=== PATIENT | male | born 1970 | race Caucasian/White ===

== ENCOUNTER 2018-09-30 20:14 | Outpatient (REF) | payer BC, SELFPAY | END 2018-09-30 20:34 | LOC: NCHCN 20:14 | PROVIDERS: PCP Specialist/Technologist Athletic Trainer; Visit Provider Specialist/Technologist Athletic Trainer | DX: Z00.00 Encounter for general adult medical examination without abnormal findings (principal); Z12.5 Encounter for screening for malignant neoplasm of prostate | CPT/HCPCS: 84153 ==

== ENCOUNTER 2019-08-11 09:50 | Outpatient (REF) | payer BC, SELFPAY ==
[2019-08-11 13:08] LABS: Anion Gap 7.1 mmol/L (3-11); BUN 17 mg/dL (7-18); CO2 28.9 mmol/L (21.0-32.0); CREATININE 1.12 mg/dL (0.70-1.30); Calcium 9.2 mg/dL (8.5-10.1); Calculated LDL 133 mg/dL; Chloride 106 mmol/L (98-107); Cholesterol 200 mg/dL (50-200); Glucose 80 mg/dL (70-100); HDL Cholesterol 44 mg/dL (40-60); Potassium 4.6 mmol/L (3.5-5.1); Sodium 142 mmol/L (136-145); Triglyceride 119 mg/dL (30-150)
[2019-08-12 10:36] LABS: PSA, Screening 1.1 ng/ml (0-2.5)
== END 2019-08-11 10:10 ==
LOC: NCHCN 09:50
PROVIDERS: PCP Specialist/Technologist Athletic Trainer; Visit Provider Specialist/Technologist Athletic Trainer
DX: Z00.00 Encounter for general adult medical examination without abnormal findings (principal); Z13.220 Encounter for screening for lipoid disorders; Z13.228 Encounter for screening for other metabolic disorders; Z12.5 Encounter for screening for malignant neoplasm of prostate
CPT/HCPCS: 80048; 80061; 84153

== ENCOUNTER 2020-08-14 16:49 | Outpatient (REF) | payer BC, SELFPAY ==
[2020-08-16 15:15] LABS: PSA, Screening 0.9 ng/mL (0-3.5)
== END 2020-08-14 17:09 ==
LOC: NCHCN 16:49
PROVIDERS: PCP Specialist/Technologist Athletic Trainer; Visit Provider Nurse Practitioner Family
DX: Z12.11 Encounter for screening for malignant neoplasm of colon (principal); Z80.42 Family history of malignant neoplasm of prostate; Z00.00 Encounter for general adult medical examination without abnormal findings; K22.2 Esophageal obstruction; G47.33 Obstructive sleep apnea (adult) (pediatric)
CPT/HCPCS: 84153

== ENCOUNTER 2021-08-20 15:15 | Outpatient (REF) | payer BC, SELFPAY ==
[2021-08-20 18:00] LABS: Anion Gap 9.2 mmol/L (3-11); BUN 15 mg/dL (7-18); CO2 26.8 mmol/L (21.0-32.0); CREATININE 0.7 mg/dL (0.70-1.30); Calcium 9.1 mg/dL (8.5-10.1); Calculated LDL 121 mg/dL (<100); Chloride 105 mmol/L (98-107); Cholesterol 204 mg/dL (<200); Glucose 84 mg/dL (74-106); HDL Cholesterol 69 mg/dL (40-60); Magnesium 1.8 mg/dL (1.8-2.4); Potassium 4.5 mmol/L (3.5-5.1); Sodium 141 mmol/L (136-145); Triglyceride 72 mg/dL (<150); Vitamin B12 346 pg/mL (193-986)
[2021-08-21 17:44] LABS: PSA, Screening 1.4 ng/mL (0.0-3.5)
== END 2021-08-20 15:16 | disposition home or self-care (01) ==
LOC: NCHCN 15:15
PROVIDERS: PCP Specialist/Technologist Athletic Trainer; Visit Provider Nurse Practitioner Family
DX: Z12.5 Encounter for screening for malignant neoplasm of prostate (principal); K22.2 Esophageal obstruction; G47.33 Obstructive sleep apnea (adult) (pediatric); Z00.00 Encounter for general adult medical examination without abnormal findings
CPT/HCPCS: 80048; 80061; 84153; 82607; 83735

== ENCOUNTER 2022-10-22 08:50 | Outpatient (REF) | payer BC, SELFPAY ==
[2022-10-22 17:09] LABS: Anion Gap 7.3 mmol/L (3-11); BUN 13 mg/dL (7-18); CO2 30.7 mmol/L (21.0-32.0); CREATININE 1.2 mg/dL (0.70-1.30); Calcium 8.9 mg/dL (8.5-10.1); Chloride 106 mmol/L (98-107); Estimated GFR 72.76 (mL/min/1.73m2); Glucose 101 mg/dL (74-106); Magnesium 2.1 mg/dL (1.8-2.4); Potassium 4.3 mmol/L (3.5-5.1); Sodium 144 mmol/L (136-145); Vitamin B12 343 pg/mL (193-986)
[2022-10-23 10:11] LABS: PSA, Screening 1.2 ng/mL (<=3.5)
== END 2022-10-22 08:51 | disposition home or self-care (01) ==
LOC: NCHCN 08:50
PROVIDERS: PCP Specialist/Technologist Athletic Trainer; Visit Provider Nurse Practitioner Family
DX: K22.2 Esophageal obstruction (principal); G47.33 Obstructive sleep apnea (adult) (pediatric); Z00.00 Encounter for general adult medical examination without abnormal findings; Z80.42 Family history of malignant neoplasm of prostate
CPT/HCPCS: 80048; 84153; 82607; 83735

== ENCOUNTER 2022-11-03 23:38 | Emergency (ER) | payer BC, SELFPAY ==
--- NOTE | 2022-11-03 23:30 | DI.CT_ITS ---
Exam(s) CT LUMBAR SPINE WO EXAM: CT LUMBAR SPINE WO CLINICAL HISTORY: severe right lower back pain. TECHNIQUE: Imaging Protocol: Axial computed tomography images with coronal and sagittal reformatted images were created and reviewed. COMPARISON: No exams were available for comparison FINDINGS: Bones: No fractures or dislocations are seen. The alignment of the spine is normal including the thor acolumbar junction. Soft tissues: There is a nonobstructing 2 mm right lower pole renal calculus. The soft tissues of th e visualized abdomen and chest are unremarkable. No large disk herniations are identified. No signifi cant central spinal canal or neural foraminal stenosis. IMPRESSION: 1. No acute abnormality in the lumbar spine. 2. Nonobstructing right nephrolithiasis. RADIATION DOSE DELIVERED: 446.05mGy.cm Total DLP 446.05mGy.cm Total DLP DATA REPOSITORY: All CT scans at this facility are submitted to the National Radiology Data Registry (NRDR) Dose Index Registry (DIR) with the [employer] (ACR). RADIATION OPTIMIZATION: All CT scans at this facility use at least one of these dose optimization te chniques: automated exposure control; mA and/or kV adjustment per patient size (includes targeted exa ms where dose is matched to clinical indication); or iterative reconstruction.
[2022-11-03 23:43] VITALS: BP 111/66; PULSE 86; RESP 18; TEMP 36.7; O2SAT 98
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
[2022-11-04] MEDS: Ondansetron 4 MG/2 ML VIAL (00:13)
[2022-11-04] MEDS: Ketorolac 15 MG/ML VIAL IVP (00:13)
[2022-11-04] MEDS: methylPREDNISolone SUCC 125 MG VIAL IVP (00:13)
[2022-11-04] MEDS: Normal Saline 500 ML IV (00:20)
[2022-11-04 01:28] VITALS: BP 115/79; PULSE 74; RESP 18; TEMP 36.7; O2SAT 92
[2022-11-04] MEDS: Lidocaine 5% Patch 1 PATCH (01:42)
[2022-11-04] MEDS: Acetaminophen 500 MG TAB 1000 MG PO (01:44)
== END 2022-11-04 01:39 | disposition home or self-care (01) ==
PROVIDERS: Emergency Provider Student in an Organized Health Care Education/Training Program; PCP Specialist/Technologist Athletic Trainer
DX: M62.830 Muscle spasm of back (principal); R25.2 Cramp and spasm
CPT/HCPCS: 96361; 96374; 96375; 99284; 72131; J1885; J2405; J2930

== ENCOUNTER 2023-02-17 03:08 | Emergency (ER) | payer BC, SELFPAY ==
[2023-02-17 03:12] VITALS: BP 147/92; PULSE 46; RESP 17; TEMP 36.7; O2SAT 100
--- NOTE | 2023-02-17 03:20 | ED.GENADUL_ITS ---
Discharge Plan Disposition Patient Disposition: Home Discharge Details Clinical Impression: Kidney stone on right side Primary Care Provider: Mary Ann Harman ED Provider: Rin Amador Home Meds and New Rx's Prescriptions: New ondansetron 8 mg tablet,disintegrating 8 mg PO Q8H PRN (Reason: nausea and vomiting) Qty: 21 0RF hydromorphone 2 mg tablet 2 mg PO Q4H PRN (Reason: pain) Qty: 20 0RF Continued lidocaine [Lidoderm] 5 % adhesive patch,medicated 1 patch Topical Q24H Qty: 15 0RF cyclobenzaprine 10 mg tablet 10 mg PO TID Qty: 14 0RF Discharge Instructions Instructions: Kidney Stones (ED) Additional Instructions: Zofran 8 mg every 8 hours as needed for nausea and vomiting. Dilaudid as prescribed and as needed for pain. Ibuprofen 600 mg every 6 hours for pain. Drink plenty of fluids. Dr. Schultz's office will call you tomorrow for follow-up appointment. He is a local urologist. Return to ED for fever of 100.4 or above, uncontrolled pain, any other concerns. Medical Decision Making Patient had a lumbosacral spine CT in October of this year. This did show an incidental stone in his right kidney. I told him I suspect suspect this is what is passing but due to his age over 50 will we will image him. I do not feel a pulsating mass on examination. He did ask for some pain medicine and because he vomited at home were giving him Zofran as well. We will check a UA as well to assure that there is no evidence of infection. 0520: The patient is comfortable. He has been updated on his test results. We will discharge him home and he can follow-up with Dr. Schultz as needed. He will return for fever of 100.4 or above with uncontrolled pain. Imaging Data Radiologic Study: Radiologist's impression: CT abdomen and pelvis: 2 mm obstructing stone at the right UVJ. Mild hydronephrosis is present. Lab Data Lab results reviewed: Yes I reviewed the patient's lab results. Lab results narrative: UA positive for blood. Specific gravity greater than or equal to 1.030. HPI General Date/Time Provider Initiated Documentation: 02/17/23 03:20 . HPI Narrative: This 52-year-old male patient presents with a chief complaint of right flank pain that woke him up at 0230 this morning. He states that the pain is sharp and colicky and is now starting to radiate around into his right lower quadrant. He took 4 Advil's at home without relief. Nothing really makes this better or worse. He did vomit at home. He has no fever or URI symptoms. There is no chest pain or shortness of breath. He does have some mild dysuria. He is moving his bowels normally. He has no pedal edema or calf pain. Related Data Home Medications Medication Instructions Recorded Confirmed cyclobenzaprine 10 mg tablet 10 mg PO TID #14 tabs 11/04/22 lidocaine 5 % topical patch 1 patch topical Q24H #15 ea 11/04/22 (Lidoderm) hydromorphone 2 mg tablet 2 mg PO Q4H PRN pain #20 tabs 02/17/23 ondansetron 8 mg disintegrating 8 mg PO Q8H PRN nausea and 02/17/23 tablet vomiting #21 tabs Previous Rx's Medication Instructions Recorded cyclobenzaprine 10 mg tablet 10 mg PO TID #14 tabs 11/04/22 lidocaine 5 % topical patch 1 patch topical Q24H #15 ea 11/04/22 (Lidoderm) hydromorphone 2 mg tablet 2 mg PO Q4H PRN pain #20 tabs 02/17/23 ondansetron 8 mg disintegrating 8 mg PO Q8H PRN nausea and 02/17/23 tablet vomiting #21 tabs General Stated Complaint: FlankPain GEN: 3 Review of Systems Constitutional Constitutional: Denies chills, Denies fever(s), Denies headache(s) and Denies weakness Eyes Eyes: Denies diplopia and Reports other (no redness) ENT Ears, Nose, Mouth, and Throat: Denies otalgia, Denies headache(s), Denies nasal congestion, Denies nasal discharge, Denies neck pain and Denies sore throat Cardiovascular Cardiovascular: Denies chest pain, Denies palpitations and Denies dyspnea Respiratory Respiratory: Denies cough and Denies dyspnea Gastrointestinal Gastrointestinal: Denies abdominal pain, Denies diarrhea, Denies nausea and Denies vomiting Genitourinary Genitourinary: Denies difficulty urinating and Reports dysuria (mild burning) Comments: No CVA tenderness to percussion Musculoskeletal Musculoskeletal: Denies myalgias, Denies muscle weakness, Denies neck pain, Denies numbness and Reports other (no pedal edema or calf TTP) Integumentary/Breasts Skin/Breast: Denies change in pigmentation and Denies rash Neurologic Neurologic: Denies headache(s), Denies numbness and Denies weakness Endocrine Endocrine: Denies palpitations PFSH All Active Problems (Updated 02/17/23 @ 05:22 by Rin Amador MD) Kidney stone on right side (Acute) Social History Smoking/Tobacco Use Status: Never Smoking risk assessment performed?: Yes Alcohol Intake: current Alcohol Intake frequency: holidays/special occasions only Drug use: Never Substance use type: does not use Do you feel safe at home: Yes Do you feel safe in your relationship?: Yes Exam Const General: no acute distress, well developed, well groomed and not in acute distress Nutritional Appearance: well nourished Orientation: alert and oriented x3 HENMT Head: normocephalic and atraumatic Ears: external ears normal Mouth: oropharynx normal and moist mucous membranes Throat: posterior oropharynx normal Eyes Conjunctivae: conjunctivae normal Neck Neck: full ROM and supple Chest Chest: normal inspection of the chest Resp Effort & Inspection: normal respiratory effort Auscultation: clear to auscultation bilaterally Cardio Rate: regular rate Rhythm: regular rhythm Heart Sounds: no murmurs and no rubs GI Inspection: normal to inspection Palpation: soft, nontender and other (non distended, no GR, no pulsating masses) Auscultation: normal bowel sounds Skin General skin exam: no rashes or lesions noted and other (pink, warm, dry) Neuro General: patient alert, patient awake and patient oriented x3 Speech: speech normal Motor: other (NEIL) Sensory Exam: no sensory deficits noted Extrem General: normal to inspection, full ROM and pedal edema present Psych Mental Status: mental status grossly normal Speech and Movement: speech and movement normal Affect: normal affect Course Vital Signs Vital signs: Vital Signs Temperature 36.7 C 02/17/23 03:12 Pulse 46 L 02/17/23 03:12 Respiratory Rate 17 02/17/23 03:12 Blood Pressure 147/92 H 02/17/23 03:12 Pulse Oximetry 100 02/17/23 03:12 Temperature 36.7 C 02/17/23 03:12 Temperature Source Temporal Artery Scan 02/17/23 03:12 Pulse 46 L 02/17/23 03:12 Respiratory Rate 17 02/17/23 03:12 Respiratory Effort Normal 02/17/23 03:14 Blood Pressure 147/92 H 02/17/23 03:12 Blood Pressure Position Sitting 02/17/23 03:12 Pulse Oximetry 100 02/17/23 03:12 Oxygen Delivery Method Room Air 02/17/23 03:12 Oxygen Flow Rate 0 02/17/23 03:12 Pain Level 7 02/17/23 03:12
--- NOTE | 2023-02-17 03:30 | DI.CT_ITS ---
Exam(s) CT ABDOMEN PELVIS WO EXAM: CT ABDOMEN PELVIS WO CLINICAL HISTORY: R flank pain. TECHNIQUE: Imaging Protocol: Axial computed tomography images with coronal and sagittal reformatted images were created and reviewed. Oral: / no COMPARISON: CT CT LUMBAR SPINE WO from 11/04/2022 FINDINGS: ABDOMEN: Lung Bases: Normal where visualized. Liver: Normal density. No measurable mass. Gallbladder and biliary tract: No radiodense calculus or dilation. Pancreas: Normal density, no abnormal calcifications or inflammatory process. Spleen: Normal. Kidneys: Normal size, contour and axis. 2 millimeter stone at right ureterovesical junction causing m ild right hydronephrosis. Tiny nonobstructing stone lower pole right kidney. No left renal calculi no masses seen. Adrenal glands: No masses seen. Lymph nodes: Within normal limits. Abdominal Aorta: Abdominal portion non-dilated. PELVIS: Bladder: Nearly empty. Not well evaluated. Bowel: Sigmoid diverticulosis. No obstruction or bowel wall thickening. Peritoneal cavity: No ascites, collection or mesenteric inflammatory response. Reproductive organs: Prostate and seminal vesicles mildly enlarged. Soft tissues: Bilateral fatty co ntaining inguinal hernias. Bones: Within normal limits. IMPRESSION: 2 millimeter stone at the right ureteral vesicle junction causing mild hydronephrosis. RADIATION DOSE DELIVERED: 658.9mGy.cm Total DLP DATA REPOSITORY: All CT scans at this facility are submitted to the National Radiology Data Registry (NRDR) Dose Index Registry (DIR) with the [employer] (ACR). RADIATION OPTIMIZATION: All CT scans at this facility use at least one of these dose optimization te chniques: automated exposure control; mA and/or kV adjustment per patient size (includes targeted exa ms where dose is matched to clinical indication); or iterative reconstruction.
[2023-02-17] MEDS: Normal Saline 1,000 ML 1000 ML IV (03:37)
[2023-02-17] MEDS: Ondansetron 4 MG/2 ML VIAL 8 MG IVP (03:38)
[2023-02-17] MEDS: HYDROmorphone 2 MG/ML SYR 1 MG IVP ×2 (03:38→04:39)
[2023-02-17 04:10] LABS: Bilirubin Negative (Negative); Blood Large (Negative); Clarity Sl Cloudy (Clear); Glucose Negative (Negative); Ketones Negative (Negative); Leukocyte Esterase Negative (Negative); Nitrite Negative (Negative); Specific Gravity >= 1.030 (1.005-1.025); Urobilinogen 0.2 mg/dL (Up to 0.2)
[2023-02-17 04:18] LABS: Bacteria Few HPF (Negative); C & S Indicated? No; Crystals Negative HPF (Negative); Epithelial Cells Rare HPF (Negative); Mucus Moderate (Negative); WBC 0-2 HPF (0-5)
--- NOTE | 2023-02-17 05:17 | DI.VRAD_ITS ---
PROCEDURE INFORMATION: Exam: CT Abdomen And Pelvis Without Contrast Exam date and time: 02/17/2023 3:49 AM Age: 52 years old Clinical indication: Abdominal pain; Flank; Right TECHNIQUE: Imaging protocol: Computed tomography of the abdomen and pelvis without contrast. Radiation optimization: All CT scans at this facility use at least one of these dose optimization techniques: automated exposure control; mA and/or kV adjustment per patient size (includes targeted exams where dose is matched to clinical indication); or iterative reconstruction. COMPARISON: CT LUMBAR SPINE WO 11/04/2022 12:02 AM FINDINGS: Lungs: Lung bases clear. Diaphragm: Small hiatal hernia. Liver: Grossly unremarkable unenhanced liver. Gallbladder and bile ducts: Gallbladder partially collapsed. No calcified gallstones seen. No biliary dilatation. Pancreas: Grossly unremarkable unenhanced pancreas. Spleen: Grossly unremarkable unenhanced spleen. Adrenal glands: Normal appearing adrenal glands. Kidneys and ureters: 2 mm stone at the right ureterovesical junction with upstream ureterectasis and mild hydronephrosis in keeping with obstructive uropathy. No radiopaque left-sided urinary tract stones or hydronephrosis. Stomach and bowel: No oral contrast. Stomach moderately distended with fluid. No small bowel dilatation to suggest obstruction. Normal-appearing fecal material in the cecum, ascending colon, and transverse colon. Downstream colon completely evacuated and collapsed. Scattered colonic diverticula but no evidence of diverticulitis or convincing evidence of colitis. Appendix: Normal appendix. Intraperitoneal space: No gross ascites or free air. Vasculature: Normal caliber abdominal aorta. Lymph nodes: No pathologically enlarged mesenteric, retroperitoneal, or pelvic sidewall lymph nodes. Urinary bladder: Urinary bladder partially decompressed. Reproductive: Prostate gland and seminal vesicles grossly normal in size. Bones/joints: No acute fracture seen among the bones of the abdomen or pelvis. Soft tissues: Moderate-sized fat containing bilateral inguinal hernias. IMPRESSION: 2 mm obstructing stone at the right ureterovesical junction. Dictated and Authenticated by: Jose Alberto Carter MD. Ordering:DAMARIS Gar MD
--- NOTE | 2023-02-17 05:23 | NUR.NOTE ---
Pt placed on referral for urology for kidney stones to be seen within 1 week
[2023-02-17] MEDS: HYDROmorphone 2 MG TAB PO (05:41)
== END 2023-02-17 05:42 | disposition home or self-care (01) ==
LOC: ER 05:22
PROVIDERS: Emergency Provider Emergency Medicine; PCP Nurse Practitioner Family
DX: N20.0 Calculus of kidney (principal)
CPT/HCPCS: 96361; 96374; 96375; 96376; 99284; 74176; 81003; 81015; J1170; J2405

== ENCOUNTER 2023-11-17 09:49 | Outpatient (REF) | payer BC, SELFPAY ==
[2023-11-17 15:31] LABS: Magnesium 2.4 mg/dL (1.8-2.4); Vitamin B12 325 pg/mL (193-986)
[2023-11-17 15:48] LABS: Hemoglobin A1C 5.5 % (<5.7)
[2023-11-17 23:21] LABS: PSA, Screening 0.9 ng/mL (<=3.5)
== END 2023-11-17 09:50 | disposition home or self-care (01) ==
LOC: NCHCN 09:49
PROVIDERS: PCP Nurse Practitioner Family; Visit Provider Nurse Practitioner Family
DX: K22.2 Esophageal obstruction (principal); Z13.1 Encounter for screening for diabetes mellitus; Z12.5 Encounter for screening for malignant neoplasm of prostate
CPT/HCPCS: 84153; 82607; 83036; 83735

== ENCOUNTER 2024-11-04 18:55 | Outpatient (REF) | payer BC, SELFPAY ==
[2024-11-04 16:06] LABS: Anion Gap 6.9 mmol/L (3-11); BUN 24 mg/dL (7-18); CO2 30.1 mmol/L (21.0-32.0); CREATININE 1.4 mg/dL (0.70-1.30); Calcium 9.3 mg/dL (8.5-10.1); Calculated LDL 143 mg/dL (<100); Chloride 106 mmol/L (98-107); Cholesterol 224 mg/dL (<200); Estimated GFR 59.73 (mL/min/1.73m2); Glucose 92 mg/dL (74-106); HDL Cholesterol 70 mg/dL (40-60); Magnesium 2.2 mg/dL (1.8-2.4); Sodium 143 mmol/L (136-145); Triglyceride 55 mg/dL (<150); Vitamin B12 310 pg/mL (193-986)
[2024-11-04 22:35] LABS: PSA, Screening 1.1 ng/mL (<=3.5)
== END 2024-11-04 18:56 | disposition home or self-care (01) ==
LOC: NCHCN 18:55
PROVIDERS: PCP Nurse Practitioner Family; Visit Provider Nurse Practitioner Family
DX: Z00.00 Encounter for general adult medical examination without abnormal findings (principal); Z12.5 Encounter for screening for malignant neoplasm of prostate; K22.2 Esophageal obstruction
CPT/HCPCS: 80048; 80061; 84153; 82607; 83735

== ENCOUNTER 2024-11-15 13:33 | Outpatient (REF) | payer BC, SELFPAY ==
--- OUTSIDE RECORDS SUMMARY | 2024-11-15 13:34 | XMS_ITS | Encounter Summary ---
Author Organization [facility] Address [address] [place] [address] Care Team Providers Care Geotechnical Intern Name Role Phone Az Rose MD Primary Care Provider [phone] Encounter Details Date Type Department Care Team (Late st Contact Info) Description 11/04/2024 Lab Requisition [facility] Pathology & Laboratory Medicine - [address] [id number] Outr Resulting Lab, Provider Social History Tobacco Use Types Packs/Day Years Used Date Smoking Tobacco: Never Assessed Sex and Gender Information Value Date Recorded Sex Assigned at Not on file Legal Sex Male 18:30 EST Gender Identity Not on file Sexual Orientation Not on file documented as of this encounter Plan of Treatment Not on file documented as of this encounter Procedures Procedure Name Priority Date/Time Associated Diagnosis Comments PSA TOTAL, DIAGNOSTIC Routine 11/04/2024 8:06 EST documented in this encounter Results * PSA, DIAGNOSTIC (11/04/2024 8:06 EST) PSA 1.1 <=3.5 ng/mL 11/04/2024 22:30 EST [facility] Blood VENOUS BLOOD / Unknown 11/04/2024 8:06 EST 11/04/2024 21:28 EST Narrative [facility] - 11/04/2024 22:30 EST NOTE: Serum PSA concentration should not be interpreted as absolute evidence for the presence or absence of malignant disease. Assayed on Siemens ADVIA Centaur XPT using chemiluminescent technology.??Values obtained by using different assay methods cannot be used interchangeably. us Provider Outr Resulting Lab CHEMISTRY & BLOOD GA S ORDERABLES Final Result [facility] [address] [place] [address] documented in this encounter Visit Diagnoses Not on filedocumented in this encounter Care Teams Geotechnical Intern Relationship Specialty Start Date End Date Az Rose MD [address] [place] [address] PCP - General 08/12/15 documented as of this encounter
--- OUTSIDE RECORDS SUMMARY | 2024-11-15 13:34 | XMS_ITS | Clinical Summary ---
Author Organization [facility] Address [address] [place] [address] Care Team Providers Care Allergy Physician Name Role Phone Az Rose MD Primary Care Provider [phone] Encounters Date Type Department Care Team Description 11/04/2024 Lab Requisition [facility] Pathology & Laboratory Medicine - [address] [address] Outr Resulting Lab, Provider from Last 3 Months Social History Tobacco Use Types Packs/Day Years Used Date Smoking Tobacco: Never Assessed Sex and Gender Information Value Date Recorded Sex Assigned at Not on file Legal Sex Male 18:30 EST Gender Identity Not on file Sexual Orientation Not on file Plan of Treatment Health Maintenance Due Date Last Done Comments Hepatitis C Screen 1970 Hepatitis B Vaccine (1 of 3 - 19+ 3-dose series) 05/31 COVID-19 Vaccine ( season) 2024 Procedures Procedure Name Priority Date/Time Associated Diagnosis Comments PSA TOTAL, DIAGNOSTIC Routine 11/04/2024 8:06 EST from Last 3 Months Results * PSA, DIAGNOSTIC (11/04/2024 8:06 EST) PSA 1.1 <=3.5 ng/mL 11/04/2024 22:30 EST [facility] Blood VENOUS BLOOD / Unknown 11/04/2024 8:06 EST 11/04/2024 21:28 EST Narrative [facility] - 11/04/2024 22:30 EST NOTE: Serum PSA concentration should not be interpreted as absolute evidence for the presence or absence of malignant disease. Assayed on Siemens ADVIA Centaur XPT using chemiluminescent technology.??Values obtained by using different assay methods cannot be used interchangeably. us Provider Outr Resulting Lab CHEMISTRY & BLOOD GA S ORDERABLES Final Result [facility] [address] [place] [address] from Last 3 Months Care Teams Allergy Physician Relationship Specialty Start Date End Date zA Rose MD [address] [place] [address] PCP - General 08/12/15
--- OUTSIDE RECORDS SUMMARY | 2024-11-15 13:34 | XMS_ITS | Referral Summary ---
Author Organization [facility] Address [address] [place] [address] Care Team Providers Care Molder Feeder Name Role Phone Az Rose MD Primary Care Provider [phone] Encounters Date Type Department Care Team Description 11/04/2024 Lab Requisition [facility] Pathology & Laboratory Medicine - [address] [address] Outr Resulting Lab, Provider from Last 3 Months Social History Tobacco Use Types Packs/Day Years Used Date Smoking Tobacco: Never Assessed Sex and Gender Information Value Date Recorded Sex Assigned at Not on file Legal Sex Male 18:30 EST Gender Identity Not on file Sexual Orientation Not on file Plan of Treatment Not on file Procedures Procedure Name Priority Date/Time Associated Diagnosis Comments PSA TOTAL, DIAGNOSTIC Routine 11/04/2024 8:06 EST from Last 3 Months Results * PSA, DIAGNOSTIC (11/04/2024 8:06 EST) PSA 1.1 <=3.5 ng/mL 11/04/2024 22:30 EST [facility] Blood VENOUS BLOOD / Unknown 11/04/2024 8:06 EST 11/04/2024 21:28 EST Narrative [facility] - 11/04/2024 22:30 EST NOTE: Serum PSA concentration should not be interpreted as absolute evidence for the presence or absence of malignant disease. Assayed on Siemens ADVIA Unightaur XPT using chemiluminescent technology.??Values obtained by using different assay methods cannot be used interchangeably. us Provider Outr Resulting Lab CHEMISTRY & BLOOD GA S ORDERABLES Final Result [facility] [address] [place] [address] from Last 3 Months Care Teams Molder Feeder Relationship Specialty Start Date End Date Az Rose MD [address] [place] [address] PCP - General 08/12/15
--- OUTSIDE RECORDS SUMMARY | 2024-11-15 13:34 | XMS_ITS | Encounter Summary ---
Author Organization [facility] Address [address] [place] [address] Care Team Providers Care Tool Crib Attendant Name Role Phone Az Rose MD Primary Care Provider [phone] Encounter Details Date Type Department Care Team (Late st Contact Info) Description 11/17/2023 Lab Requisition [facility] Pathology & Laboratory Medicine - [address] [address] Outr Resulting Lab, Provider Social History Tobacco [...] Associated Diagnosis Comments PSA TOTAL, DIAGNOSTIC Routine 11/17/2023 9:10 EST documented in this encounter Results * PSA TOTAL, DIAGNOSTIC (11/17/2023 9:10 EST) PSA 0.9 <=3.5 ng/mL 11/17/2023 23:15 EST [facility] Blood VENOUS BLOOD / Unknown 11/17/2023 9:10 EST 11/17/2023 21:19 EST Narrative [facility] - 11/17/2023 23:15 EST NOTE: Serum PSA concentration should not be interpreted as absolute evidence for the presence or absence of malignant disease. Assayed on Siemens ADVIA Centaur XPT using chemiluminescent technology.??Values obtained by using different assay methods cannot be used interchangeably. us Provider Outr Resulting Lab CHEMISTRY & BLOOD GA S ORDERABLES Final Result [facility] [address] [place] [address] documented in this encounter Visit Diagnoses Not on filedocumented in this encounter Care Teams Tool Crib Attendant Relationship Specialty Start Date End Date Az Rose MD [address] [place] [address] PCP - General 08/12/15 documented as of this encounter
--- OUTSIDE RECORDS SUMMARY | 2024-11-15 13:34 | XMS_ITS | Encounter Summary ---
Author Organization [facility] Address [address] [place] [address] Care Team Providers Care Vest Front Presser Name Role Phone Az Rose MD Primary Care Provider [phone] Encounter Details Date Type Department Care Team (Late st Contact Info) Description 10/22/2022 Lab Requisition [facility] Pathology & Laboratory Medicine - [address] [id number] Outr Resulting Lab, Provider Social History Tobacco [...] Associated Diagnosis Comments PSA TOTAL, DIAGNOSTIC Routine 10/22/2022 8:41 EST documented in this encounter Results * PSA TOTAL, DIAGNOSTIC (10/22/2022 8:41 EST) PSA 1.2 <=3.5 ng/mL 10/23/2022 10:06 EST [facility] Blood VENOUS BLOOD / Unknown 10/22/2022 8:41 EST 10/22/2022 21:26 EST Narrative [facility] - 10/23/2022 10:06 EST NOTE: Serum PSA concentration should not be interpreted as absolute evidence for the presence or absence of malignant disease. Assayed on Siemens ADVIA Centaur XPT using chemiluminescent technology.??Values obtained by using different assay methods cannot be used interchangeably. us Provider Outr Resulting Lab CHEMISTRY & BLOOD GA S ORDERABLES Final Result [facility] [address] [place] [address] documented in this encounter Visit Diagnoses Not on filedocumented in this encounter Care Teams Vest Front Presser Relationship Specialty Start Date End Date Az Rose MD [address] [place] [address] PCP - General 08/12/15 documented as of this encounter
--- OUTSIDE RECORDS SUMMARY | 2024-11-15 13:35 | XMS_ITS | Encounter Summary ---
Author Organization [facility] [place] [address] [place] [address] Care Team Providers Care Creative Art Therapist Name Role Phone Aric Castillo Primary Care Provider Encounter Details Date Type Department Care Team (Late st Contact Info) Description 10/13/2019 Orders [place] [address] Az Hewitt MD [facility] [place] [address] Social History Tobacco Use Types Packs/Day Years Used Date Smoking Tobacco: Never Smokeless Tobacco: Never Alcohol Use Standard Drinks/Week Comments Yes 0 (1 standard drink = 0.6 oz pur e alcohol) rarely Sex and Gender Information Value Date Recorded Sex Assigned at Male 03/08/2022 9:15 PM EDT Gender Identity Not on file Sexual Orientation Straight 03/08/2022 9: 15 PM EDT documented as of this encounter Plan of Treatment Not on file documented as of this encounter Visit Diagnoses Not on filedocumented in this encounter Care Teams Creative Art Therapist Relationship Specialty Start Date End Date Aric Castillo PA PCP - General General Internal Medicine 08/25/1908/25 documented as of this encounter
--- OUTSIDE RECORDS SUMMARY | 2024-11-15 13:35 | XMS_ITS | Encounter Summary ---
Author Organization [facility] Address [address] [place] [address] Care Team Providers Care Transitions Rn Care Coordinator Name Role Phone Az Rose MD Primary Care Provider [phone] Encounter Details Date Type Department Care Team (Late st Contact Info) Description 08/30/2020 Lab Requisition [facility] Pathology & Laboratory Medicine - [address] [phone] Outr Resulting Lab, Provider Social History Tobacco [...] Date/Time Associated Diagnosis Comments PSA TOTAL, DIAGNOSTIC After X-Ray 08/14/2020 10:27 EST documented in this encounter Results * PSA TOTAL, DIAGNOSTIC (08/14/2020 10:27 EST) PSA 0.9 0.0 - 3.5 ng/mL 09/27/2020 10:30 EST [facility] Blood VENOUS BLOOD / Unknown 08/14/2020 10:27 EST 09/26/2020 7:13 EST Narrative [facility] - 09/27/2020 10:30 EST NOTE: Serum PSA concentration should not be interpreted as absolute evidence for the presence or absence of malignant disease. Assayed on Siemens ADVIA Centaur XPT using chemiluminescent technology.??Values obtained by using different assay methods cannot be used interchangeably. us Provider Outr Resulting Lab CHEMISTRY & BLOOD GA S ORDERABLES Final Result [facility] [address] [place] [address] documented in this encounter Visit Diagnoses Not on filedocumented in this encounter Care Teams Transitions Rn Care Coordinator Relationship Specialty Start Date End Date Az Rose MD [address] [place] [address] PCP - General 08/12/15 documented as of this encounter
--- OUTSIDE RECORDS SUMMARY | 2024-11-15 13:35 | XMS_ITS | Encounter Summary ---
Author Organization [facility] [place] [address] Care Team Providers Care User Support Analyst Supervisor Name Role Phone Aric Castillo Primary Care Provider [phone] Encounter Details Date Type Department Care Team (Late st Contact Info) Description 01/14/2020 Refill [place] [id number] Arely Peterson RN Social History Tobacco Use Types Packs/Day Years [...] PM EDT documented as of this encounter Miscellaneous Notes * Telephone Encounter - Arely Peterson RN - 01/14/2020 3:48 PM EDT Received 90 day refill request from [employer] for Omeprazole 40mg one tab daily. Patient seen by Dr. Hewitt in October 2019, per that office note, Restart omeprazole 40 mg po qd. Will forward to Dr. Hewitt for review and approval. documented in this encounter Plan of Treatment Not on file documented as of this encounter Visit Diagnoses Not on filedocumented in this encounter Care Teams User Support Analyst Supervisor Relationship Specialty Start Date End Date Aric Castillo PA PCP - General General Internal Medicine 08/25/1908/25 documented as of this encounter
--- OUTSIDE RECORDS SUMMARY | 2024-11-15 13:35 | XMS_ITS | Encounter Summary ---
[place] [address] Care Team Providers Care Lye Machine Operator Name Role Phone Candace Bridges APRN Primary Care Provider [phone] Reason for Referral * Diagnostic Test (Routine) - Closed Specialty Diagnoses / Procedures Referred By Contac t Referred To Contact Radiology Diagnoses Internal derangement of left knee Procedures MRI Knee wo Contrast Left (Generic) Danny Garza MD [address] [place] [address] [place] [address] Referral ID Status Reason Start Date Expiration Date V isits Requested Visits Authorized [id number] Closed Specialty Service Requested 05/14/2024 11/14/2025 1 1 Reason for Visit * Diagnostic Test (Routine) - Closed Specialty Diagnoses / Procedures Referred By Contac Referred To Contact Radiology Diagnoses Internal derangement of left knee Procedures MRI Knee wo Contrast Left (Generic) Danny Garza MD [address] [place] [address] [place] [address] Referral ID Status Reason Start Date Expiration Date V isits Requested Visits Authorized [id number] Closed Specialty Service Requested 05/14/2024 11/14/2025 1 1 Encounter Details Date Type Department Care Team (Latest Contact Info) Description 05/21/2024 8:00 PM EDT - 05/21/2024 11:59 PM EDT Hospital Encounter MRI at [facility] [place] [address] Danny Garza MD [address] [place] [address] Internal derangement of left knee Discharge Disposition: Home Social History Tobacco Use Types Packs/Day Years Used Date Smoking Tobacco: Never Smokeless Tobacco: Never Alcohol Use Standard Drinks/Week Comments Yes 0 (1 standard drink = 0.6 oz pur e alcohol) twice monthly Sex and Gender Information Value Date Recorded Sex Assigned at Male 03/08/2022 9:15 PM EDT Gender Identity Not on file Sexual Orientation Straight 03/08/2022 9: 15 PM EDT documented as of this encounter Medications at Time of Discharge Medication Sig Dispensed Refills Start Date End Date omeprazole (PriLOSEC) 40 mg Capsule, Delayed Release(E.C.)Indications :Esophageal dysphagia TAKE 1 CAPSULE DAILY 30 capsule 1 01/16/2021 documented as of this encounter Plan of Treatment Not on file documented as of this encounter Procedures Procedure Name Priority Date/Time Associated Diagnosis Comments MRI KNEE LEFT WO CONTRAST Routine 05/21/2024 9:03 PM EDT Internal derangement of left knee documented in this encounter Results * MRI Knee wo Contrast Left (Generic) (05/21/2024 9:03 PM EDT) [facility] WORKSTATION ID [id number] [facility] Anatomical Region Laterality Modality Knee Left Magnetic Resonan ce Impressions 05/22/2024 1:31 PM EDT 1. ??Constellation of MR findings consistent with pivot shift mechanism of injury including: -Subchondral fracture of the sulcus terminalis with matching subchondral fracture of the posterior lateral tibial plateau and mildly depressed osteochondral fracture of the posterior medial tibial plateau. -Complete rupture of the anterior cruciate ligament and partial tearing of the posterior cruciate ligament -Injury of the medial collateral ligament complex characterized by sprain of the superficial medial collateral ligament and disruption of the medial meniscal-femoral ligament. -Peripheral vertical tear of the posterior horn of the lateral meniscus and posterior medial meniscal-capsular injury -Rupture of the attenuated ligament of Simon. 2. ??Lateral subluxation of the patella. 3. ??Small leaking Danielle's cyst. Thank you for letting us participate in the care of this patient. ??If you are a health care provider and have any questions regarding this report, please contact the number below. ??For patients who have questions please contact the health rn urgent care that requested your imaging first. ? Narrative 05/22/2024 1:31 PM EDT EXAMINATION: MRI KNEE WO CONTRAST LEFT (GENERIC) CLINICAL HISTORY: left knee pop and instability. ? ligamentious or meniscal pathology. ?? (as entered by ordering provider in the order requisition) COMPARISON: None TECHNIQUE: Routine noncontrast MRI of the Left knee was performed. ??Sequences include sagittal PD with and without fat saturation, coronal PD with and without fat saturation, axial T2 with fat saturation, and axial T1. FINDINGS: Menisci: The medial meniscus is intact. ??However, there is fluid signal at the posterior meniscal femoral junction, suspicious for meniscal capsular injury (series 8001, image 15). There is a peripheral vertical tear of the posterior horn of the lateral meniscus (series 8001, image 25 through 22). ??Separate from the torn posterior horn, there is an attenuated appearance of the ligament of Simon which appears disrupted (series 8001, image 17 through 21). Ligaments and tendons: Complete rupture of the anterior cruciate ligament. Partial tearing of some of the anterior fibers of the posterior cruciate ligament. There is a tear of the meniscal femoral ligament of the deep medial collateral ligament complex. ??There is periligamentous edema around the superficial medial collateral ligament, without disruption of the superficial medial collateral ligament. The fibular collateral ligament, iliotibial band, biceps femoris tendon, and popliteus tendon are intact. Extensor mechanism: The quadriceps and patellar tendons are intact. The medial and lateral retinacula are intact. Normal signal of Hoffa's fat pad. Bones, cartilage and joint: Small knee joint effusion. No bone marrow replacing lesion. There is a subchondral fracture of the sulcus terminalis (series 6001, image 27) with a subchondral fracture of the posterior lateral tibial plateau (series 6001, image 25). ??There is a mildly depressed osteochondral fracture of the posterior medial tibial plateau (series 6001, image 13). There is lateral subluxation of the patella. ??Cartilage of the patellofemoral compartment is intact. Osteochondral fracture of the posterior medial tibial plateau. ??Cartilage overlying the medial femoral condyles intact. Cartilage of the lateral compartment is intact. Cartilage of the tibial-fibular joint is intact. Muscles: Normal bulk and signal of the visualized muscles. Neurovascular: Normal signal and caliber of the tibial and common peroneal nerves. Other Extra-articular: Small Danielle's cyst with adjacent soft tissue edema.. No fluid distention of the pes anserine bursa. Procedure Note Karena Shelton MD - 05/22/2024 EXAMINATION: MRI KNEE WO CONTRAST LEFT (GENERIC) CLINICAL HISTORY: left knee pop and instability. ? ligamentious ormeniscal pathology. (as entered by ordering provider in the orderrequisition) COMPARISON: None TECHNIQUE: Routine noncontrast MRI of the Left knee was performed.Sequences include sagittal PD with and without fat saturation, coronal PD with andwithout fat saturation, axial T2 with fat saturation, and axial T1. FINDINGS: Menisci: The medial meniscus is intact. However, there is fluid signal at theposterior meniscal femoral junction, suspicious for meniscal capsular injury ([id number], image 15). There is a peripheral vertical tear of the posterior horn of the lateral meniscus (series 8001, image 25 through 22). Separate from the tornposterior horn, there is an attenuated appearance of the ligament of Humphreywhich appears disrupted (series 8001, image 17 through 21). Ligaments and tendons: Complete rupture of the anterior cruciate ligament. Partial tearing of some of the anterior fibers of the posterior cruciate ligament. There is a tear of the meniscal femoral ligament of the deep medialcollateral ligament complex. There is periligamentous edema around the superficialmedial collateral ligament, without disruption of the superficial medialcollateral ligament. The fibular collateral ligament, iliotibial band, biceps femoris tendon,and popliteus tendon are intact. Extensor mechanism: The quadriceps and patellar tendons are intact. Themedial and lateral retinacula are intact. Normal signal of Hoffa's fat pad. Bones, cartilage and joint: Small knee joint effusion. No bone marrowreplacing lesion. There is a subchondral fracture of the sulcus terminalis (series 6001,image 27) with a subchondral fracture of the posterior lateral tibial plateau(series 6001, image 25). There is a mildly depressed osteochondral fracture ofthe posterior medial tibial plateau (series 6001, image 13). There is lateral subluxation of the patella. Cartilage of thepatellofemoral compartment is intact. Osteochondral fracture of the posterior medial tibial plateau.Cartilage overlying the medial femoral condyles intact. Cartilage of the lateral compartment is intact. Cartilage of the tibial-fibular joint is intact. Muscles: Normal bulk and signal of the visualized muscles. Neurovascular: Normal signal and caliber of the tibial and commonperoneal nerves. Other Extra-articular: Small Danielle's cyst with adjacent soft tissueedema.. No fluid distention of the pes anserine bursa. IMPRESSION 1. Constellation of MR findings consistent with pivot shift mechanism ofinjury including: -Subchondral fracture of the sulcus terminalis with matching subchondral fracture of the posterior lateral tibial plateau and mildly depressed osteochondral fracture of the posterior medial tibial plateau. -Complete rupture of the anterior cruciate ligament and partial tearing ofthe posterior cruciate ligament -Injury of the medial collateral ligament complex characterized by sprainof the superficial medial collateral ligament and disruption of the medial meniscal-femoral ligament. -Peripheral vertical tear of the posterior horn of the lateral meniscusand posterior medial meniscal-capsular injury -Rupture of the attenuated ligament of Simon. 2. Lateral subluxation of the patella. 3. Small leaking Danielle's cyst. Thank you for letting us participate in the care of this patient. If youare a health care provider and have any questions regarding this report,please contact the number below. For patients who have questions please contactthe health rn urgent care that requested your imaging first. Danny Garza MD IMG MRI ORDERABLES documented in this encounter Visit Diagnoses Diagnosis Internal derangement of left knee Unspecified internal derangement of knee documented in this encounter Care Teams Lye Machine Operator Relationship Specialty Start Date End Date Candace Bridges APRN [address] [place] [address] PCP - General Family Medicine 08/17/20 documented as of this encounter
--- OUTSIDE RECORDS SUMMARY | 2024-11-15 13:35 | XMS_ITS | Encounter Summary ---
Author Organization [facility] [place] [address] Care Team Providers Care Dish Carrier Name Role Phone Candace Bridges APRN Primary Care Provider [phone] Reason for Visit * Auth/Cert Specialty Diagnoses / Procedures Referred By Daniela t Referred To Contact Diagnoses Encounter for screening colonoscopy EGD with possible dilation Screening colonoscopy Procedures PRO UPPER GI ENDOSCOPY, DIAGNOSTIC PRO COLONOSCOPY, DIAGNOSTIC EGD, UPPER GI ENDOSCOPY COLONOSCOPY, DIAGNOSTIC Referral ID Status Reason Start Date Expiration Date Visits Re quested Visits Authorized [id number] 1 1 Encounter Details Date Type Department Care Team (Late st Contact Info) Description 08/28/2021 2:55 PM EST - 08/28/2021 4:10 PM EST Surgery [place] [address] Az Hewitt MD [facility] [place] [address] EGD, UPPER GI ENDOSCOPY (WRU 2.09) Social History Tobacco Use Types Packs/Day Years [...] PM EDT documented as of this encounter Last Filed Vital Signs Vital Sign Reading Time Taken Comments Blood Pressure 117/86 08/28/2021 4:00 PM EST Pulse 64 08/28/2021 3:20 PM EST Temperature 36.4 ??C (97.5 ??F) 08/28/2021 2:03 PM ES T Respiratory Rate 16 08/28/2021 4:00 PM EST Oxygen Saturation 99% 08/28/2021 4:00 PM EST Inhaled Oxygen Concentration - - Weight 79.4 kg (175 lb) 08/28/2021 2:03 PM EST Height 175.3 cm (5' 9) 08/28/2021 2:03 PM EST Body Mass Index 25.84 08/28/2021 2:03 PM EST documented in this encounter Discharge Instructions * Discharge Instructions* Zainab Yanez RN - 08/28/2021 3:30 PM EST Upper Endoscopy (EGD) and Colonoscopy: What to Expect at Home Your Recovery After you have an EGD and colonoscopy, you will stay at the clinic for 1 to 2 hours until the medicines wear off. Then you can go home. But you will need to arrange for a ride. Your doctor will tell you when you can eat and do your other usual activities. Your doctor will talk to you about when you will need your next colonoscopy. Your doctor can help you decide how often you need to be checked. This will depend on the results of your test and your risk for colorectal cancer. You may have a sore throat for a day or two after the test. After the test, you may be bloated or have gas pains. You may need to pass gas. If a biopsy was done or a polyp was removed, you may have streaks of blood in your stool (feces) for a few days. Problems such as heavy rectal bleeding may notoccur until several weeks after the test. This isn't common. But it can happen after polyps are hardik abel. This care sheet gives you a general idea about how long it will take for you to recover. But each person recovers at a different pace. Follow the steps below to get better as quickly as possible. How can you care for yourself at home? Activity ?? Rest when you feel tired. ?? You can do your normal activities when it feels okay to do so. Diet ?? Follow your doctor's directions for eating. ?? Unless your doctor has told you not to, drink plenty of fluids. This helps to replace the fluidsthat were lost during the colon prep. ?? Do not drink alcohol. Medicines If you have a sore throat the day after the test, use an tzwl-agg-tcziiea spray or lozenges to numbyour throat. Warm salt water gargles can also help the discomfort. Your doctor will tell you if and when you can restart your medicines. He or she will also give you instructions about taking any new medicines. ?? If you take blood thinners, such as warfarin (Coumadin), clopidogrel (Plavix), or aspirin, be sure to talk to your doctor. He or she will tell you if and when to start taking those medicines again. Make sure that you understand exactly what your doctor wants you to do. ?? If polyps were removed or a biopsy was done during the test, your doctor may tell you not to take aspirin or other anti-inflammatory medicines for a few days. These include ibuprofen (Advil, Motrin) and naproxen (Aleve). Other instructions for patients who received sedation: You may have received medications during the procedure which effect your judgement and reaction time. For your safety, do not drive or operate machinery until the medicine wears off and you can think clearly. Your doctor may tell you not to drive or operate machinery until the day after your test. Do not sign legal documents or make major decisions until the medicine wears off and you can think clearly. The anesthesia can make it hard for you to fully understand what you are agreeing to. Be careful on stairs and when standing up quickly as you may be unsteady on your feet. IV site: Slight redness or tenderness is normal. You can use a warm compress if you would like. If tenderness and/or redness increase or if foul drainage occurs, please contact your doctor. Please call [phone] before 8pm Mon-Fri with problems, questions, or concerns. If you call after 8pm or on weekends, call the Hospital at [phone] and ask for the Dog Licenser rn neonatal and the rice drier operator will contact that person for you. When should you call for help? Call 911 anytime you think you may need emergency care. For example, call if: ?? You passed out (lost consciousness). ?? You pass maroon or bloody stools. ?? You have trouble breathing. Call your doctor now or seek immediate medical care if: ?? You have pain that does not get better after you take pain medicine. ?? You are sick to your stomach or cannot drink fluids. ?? You have new or worse belly pain. ?? You have blood in your stools. ?? You have a fever. ?? You cannot pass stools or gas. ?? Your throat still hurts after a day or two. ?? Your throat still hurts after a day or two. ?? Watch closely for changes in your health, and be sure to contact your doctor if you have any problems. Where can you learn more? You can view health information on [employer], your personal patient account. Log in or sign up today. Content Version: 12.2 ?? [id number] [employer]. Care instructions adapted under license by [facility]. If you have questions about a medical condition or this instruction, always ask your healthcare professional. [employer] disclaims any warranty or liability for your use of this information. * Patient Instructions* Az Hewitt MD - 08/28/2021 3:26 PM EST Please see Recommendations in the Provation procedure report which is documented in the procedural note in E-DH. documented in this encounter Medications at Time of Discharge Medication Sig Dispensed Refills Start Date End Date omeprazole (PriLOSEC) 40 mg Capsule, Delayed Release(E.C.)Indications :Esophageal dysphagia TAKE 1 CAPSULE DAILY 30 capsule 1 01/16/2021 documented as of this encounter H&P Notes * Az Hewitt MD - 08/28/2021 2:33 PM EST Gastroenterology and Hepatology Pre-Procedure History and Physical Exam Procedure: Upper endoscopy and colonoscopy Indication: GERD and screening colonoscopy There is no problem list on file for this patient. EXAM: HEENT: Airway examined, oropharynx clear Mallampati Score: I (soft palate, uvula, fauces, tonsillar pillars visible) LUNGS: Clear to auscultation HEART: Regular rate and rhythm, normal S1, S2 ABDOMEN: Normal bowel sounds, soft, non tender, non distended, A/P Proceed with the planned endoscopic procedure. ASA 1 - Normal health patient Sedation Plan: moderate (conscious sedation) Risks and benefits of the procedure explained to the patient. Consent signed. documented in this encounter Miscellaneous Notes * Op Note - Az Hewitt MD - 08/28/2021 2:39 PM EST [facility] Operative Note Patient Name: Paula Zarate : [id number] MR#: [id number] Case Date: 08/28/2021 Surgeon: Surgeon(s) and Role: * Az Hewitt MD - Primary Preoperative diagnosis: EGD with possible dilation Screening colonoscopy Postoperative diagnosis: Possible tiny colon polyp, normal upper exam Procedure(s) (LRB): EGD, UPPER GI ENDOSCOPY (N/A) COLONOSCOPY FLEXIBLE, WITH BX (WRVU 3.66) (N/A) Anesthesia: IVCS Attestation: Case Date: 08/28/2021 As the attending physician, I personally performed the entire procedure. AZ HEWITT MD 08/28/2021 documented in this encounter Plan of Treatment Not on file documented as of this encounter Procedures Procedure Name Priority Date/Time Associated Diagnosis Comments SPECIMEN TO PATHOLOGY Routine 08/28/2021 3:21 PM EST SURGICAL PATHOLOGY REPORT Routine 08/28/2021 3:17 PM EST Colonoscopy, Biopsy ([id number]) 08/28/2021 2:31 PM EST EGD with possible dilation Screening colonoscopy Upper GI Endoscopy, Diagnostic ([id number]) 08/28/2021 2:31 PM EST EGD with possible dilation Screening colonoscopy UPPER GI ENDOSCOPY Routine 08/28/2021 2: 20 PM EST COLONOSCOPY Routine 08/28/2021 2:20 PM EST documented in this encounter Results * Specimen to Pathology (08/28/2021 3:21 PM EST) AP Specimen 08/28/2021 3:21 PM EST 08/28/2021 3:21 PM EST Narrative [facility] - 08/28/2021 3:21 PM EST Specimen requisition ordered. ??Separate Pathology report to follow Az Ying MD PATHOLOGY/CYTOLO GY ORDERABLES [facility] [place] [address] * Surgical Pathology Report (08/28/2021 3:17 PM EST) Final Diagnosis [id number] ? Location: 4T; EA08; A The signing pathologist has (i) examined the relevant preparation(s) for the specimen(s) and (ii) rendered or confirmed the diagnosis(es). . ?Surgical Pathology DIAGNOSIS A - Ascending colon polyp, resection: - ??Colonic mucosa within normal limits. - ??Multiple levels examined. Electronically signed by: ?Wes BADILLO PhD, Kimberly Verified: ??09/06/2021 14:19 ??Pathologist Performed at: ??-[facility], [place], [place] SPECIMEN(S) SUBMITTED A - 3mm Ascending colon polyp, resection (1) CLINICAL INFORMATION Screening colonoscopy SPECIMEN PROCESSING A - Labeled/Fixativ e: 3 mm ascending colon polyp, formalin. Quantity/Size: Two, 0.2 and 0.3 cm. Tissue Description: Soft, orellana-pink tissues. Sections/Proces sing: Submitted en toto ??in 1 cassette labeled B1. ??pps 09/06/2021 2:19 PM EST [facility] GI Biopsy 08/28/2021 3:17 PM EST 08/28/2021 3:17 PM EST Az Ying MD PATHOLOGY/CYTOLO GY ORDERABLES Performing Organization Address [facility]/State/ZIP Co de Phone Number [facility] [place] [address] * UPPER GI ENDOSCOPY (08/28/2021 2:20 PM EST) Pathologist [facility] UPPER GI ENDOSCOPY [facility] Endoscopy Procedure Date: 08/28/2021 2:20 PM ? Patient Name: Paula Zarate ? Date of : 1970 ? Age: 51 ? Order #: [id number] ? Instrument Name: [id number] ? Procedure: ? Upper GI endoscopy Indications: ? Follow-up of gastro-esophageal reflux ? disease Providers: ? Az Hewitt MD, Patricia Ram ? Kristine, MONICA, Niecy Cain MD: ?Candace Bridges Medicines: ? Midazolam 3 mg IV, Fentanyl 125 ? micrograms IV, Ondansetron 4 mg IV, ? Benzocaine spray Procedure: ? Pre-Anesthesia Assessment: ? - Prior to the procedure, a History ? and Physical was performed, and ? patient medications, allergies and ? sensitivities were reviewed. The ? patient's tolerance of previous ? anesthesia was reviewed. ? - The risks and benefits of the ? procedure and the sedation options ? and risks were discussed with the ? patient. All questions were answered ? and informed consent was obtained. ? - Abdominal Examination: bowel sounds ? present, abdomen soft and non-tender, ? no masses or organomegaly noted. ? - CV Examination: normal. ? - Mental Status Examination: alert ? and oriented. ? - Respiratory Examination: clear to ? auscultation. ? - ASA Grade Assessment: I - A normal, ? healthy patient. ? - After reviewing the risks and ? benefits, the patient was deemed in ? satisfactory condition to undergo the ? procedure. ? - The anesthesia plan was to use ? moderate sedation/analgesia ? (conscious sedation). ? - Immediately prior to administration ? of medications, the patient was ? re-assessed for adequacy to receive ? sedatives. ? - Sedation was administered by an ? endoscopy nurse. The sedation level ? attained was moderate. ? - The heart rate, respiratory rate, ? oxygen saturations, blood pressure, ? adequacy of pulmonary ventilation, ? and response to care were monitored ? throughout the procedure. ? - The physical status of the patient ? was re-assessed after the procedure. ? The procedure, indications, benefits, ? risks and alternatives were explained ? to the patient. Specifically ? discussed were potential ? complications including, but not ? limited to, bleeding, perforation, ? infection, missing a cancer, and ? adverse medication reactions. The ? Endoscope was introduced through the ? mouth, and advanced to the second ? part of duodenum. The patient ? tolerated the procedure well. The ? upper GI endoscopy was accomplished ? without difficulty. ? Findings: ? The Z-line was regular and was found 38 cm from the ? incisors. ? The esophagus was normal. There was a non-obstructing ? shallow distal esophageal ring. ? A small hiatal hernia was found. The proximal extent ? of the gastric folds (end of tubular esophagus) was ? 38 cm from the incisors. The hiatal narrowing was 39 ? cm from the incisors. A few small gastric polyps ? noted. ? The examined duodenum was normal. ? Moderate Sedation: ? Moderate (conscious) sedation was administered by the ? endoscopy nurse and supervised by the endoscopist. ? The following parameters were monitored: oxygen ? saturation, heart rate, blood pressure, and response ? to care. Impression: ?- Z-line regular, 38 cm from the ? incisors. ? - Normal esophagus.Non-obst ructing ? distal esophageal ring ? - Small hiatal hernia. A few small ? gstric polyps noted. ? - Normal examined duodenum. ? - No specimens collected. Recommendation: ?- Continue present medications. ? Attending Participation: ? I personally performed the entire procedure. I was ? present during the intraservice time as documented by ? the sedation RN. ? Az Hewitt MD 08/28/2021 2:55:18 PM This report has been signed electronically. Number of Addenda: 0 Note Initiated On: 08/28/2021 2:20 PM [employer] 08/28/2021 2:20 PM EST Candace Bridges OCCUPATIONAL THERAPY MANAGER GENERAL SURGICAL ORD ERABLES [employer] * COLONOSCOPY (08/28/2021 2:20 PM EST) COLONOSCOPY [facility] Endoscopy Procedure Date: 08/28/2021 2:20 PM ? Patient Name: Paula Zarate ? Date of : 1970 ? Age: 51 ? Order #: [id number] ? Instrument Name: [id number] ? Procedure: ? Colonoscopy Indications: ? Screening for colorectal malignant ? neoplasm Providers: ? Az Hewitt MD, Patricia Ram ? Kristine, MONICA, Niecy Cain MD: ?Candace Young Medicines: ? Midazolam 6 mg IV, Fentanyl 250 ? micrograms IV Complications: ? No immediate complications. Procedure: ? Pre-Anesthesia Assessment: ? - Prior to the procedure, a History ? and Physical was performed, and ? patient medications, allergies and ? sensitivities were reviewed. The ? patient's tolerance of previous ? anesthesia was reviewed. ? - The risks and benefits of the ? procedure and the sedation options ? and risks were discussed with the ? patient. All questions were answered ? and informed consent was obtained. ? - Abdominal Examination: bowel sounds ? present, abdomen soft and non-tender, ? no masses or organomegaly noted. ? - CV Examination: normal. ? - Mental Status Examination: alert ? and oriented. ? - Respiratory Examination: clear to ? auscultation. ? - ASA Grade Assessment: I - A normal, ? healthy patient. ? - After reviewing the risks and ? benefits, the patient was deemed in ? satisfactory condition to undergo the ? procedure. ? - The anesthesia plan was to use ? moderate sedation/analgesia ? (conscious sedation). ? - Immediately prior to administration ? of medications, the patient was ? re-assessed for adequacy to receive ? sedatives. ? - Sedation was administered by an ? endoscopy nurse. The sedation level ? attained was moderate. ? - The heart rate, respiratory rate, ? oxygen saturations, blood pressure, ? adequacy of pulmonary ventilation, ? and response to care were monitored ? throughout the procedure. ? - The physical status of the patient ? was re-assessed after the procedure. ? The procedure, indications, benefits, ? risks and alternatives were explained ? to the patient. Specifically ? discussed were potential ? complications including, but not ? limited to, bleeding, perforation, ? infection, missing a cancer, and ? adverse medication reactions. The ? patient was placed in the left ? lateral decubitus position, and a ? digital rectal exam was performed. ? The Colonoscope was inserted in the ? anus and under direct visualization, ? advanced to the terminal ileum. ? Careful inspection was made as the ? colonoscope was withdrawn. The ? colonoscopy was performed without ? difficulty. The patient tolerated the ? procedure well. The quality of the ? bowel preparation was excellent. ? Findings: ? The terminal ileum appeared normal. ? A 2 mm polyp was found in the ascending colon. The ? polyp was sessile. The polyp was removed with a cold ? biopsy forceps. Resection and retrieval were complete. ? The exam was otherwise without abnormality. ? Moderate Sedation: ? Moderate (conscious) sedation was administered by the ? endoscopy nurse and supervised by the endoscopist. ? The following parameters were monitored: oxygen ? saturation, heart rate, blood pressure, and response ? to care. Impression: ?- The examined portion of the ileum ? was normal. ? - One 2 mm polyp in the ascending ? colon, removed with a cold biopsy ? forceps. Resected and retrieved. ? - The examination was otherwise ? normal. Recommendation: ?- Await pathology results. ? - Repeat colonoscopy in 5 years for ? surveillance based on pathology ? results. If hyperplastic type, then ? 10 years. ? Attending Participation: ? I personally performed the entire procedure. I was ? present during the intraservice time as documented by ? the sedation RN. ? Az Hewitt MD 08/28/2021 3:31:47 PM This report has been signed electronically. Number of Addenda: 0 Note Initiated On: 08/28/2021 2:20 PM [employer]ATION 08/28/2021 2:20 PM EST Candace Bridges APRN GENERAL SURGICAL ORD ERABLES [employer]ATION documented in this encounter Visit Diagnoses Not on filedocumented in this encounter Administered Medications Inactive Administered Medications - up to 3 most recent administrations Medication Order MAR Action Action Date Dose Rate Site benzocaine (Hurricane One) 20% spray (restricted to oanh-procedural use) ONCE PRN, Starting on Fri08/28/21 at 1435, Until Fri08/28/21 at 1829, Intra-Operative (Intra-Procedure) Given 08/28/2021 2:35 PM EST 1 each fentaNYL (pf) (50 mcg/mL) multi-dose injection ONCE PRN, Starting on Fri08/28/21 at 1435, Until Fri08/28/21 at 1829, Intra-Operative (Intra-Procedure), Routine Given 08/28/2021 3:05 PM EST 50 mcg Given 08/28/2021 3:00 PM EST 25 mcg Given 08/28/2021 2:51 PM EST 50 mcg lactated ringers infusion 100 mL/hr, Intravenous, CONTINUOUS, Starting on Fri08/28/21 at 1430, Until Fri08/28/21 at 1601, Endoscopy (Day of Procedure) New Bag 08/28/2021 2:17 PM EST 100 mL/hr 100 mL/hr midazolam (pf) (Versed) (1 mg/mL) multi-dose injection ONCE PRN, Starting on Fri08/28/21 at 1435, Until Fri08/28/21 at 1829, Intra-Operative (Intra-Procedure), Routine Given 08/28/2021 3:05 PM EST 1 mg Given 08/28/2021 3:00 PM EST 1 mg Given 08/28/2021 2:51 PM EST 1 mg ondansetron (pf) (Zofran) (2 mg/mL) injection ONCE PRN, Starting on Fri08/28/21 at 1435, Until Fri08/28/21 at 1829, Intra-Operative (Intra-Procedure), Routine Given 08/28/2021 2:35 PM EST 4 mg documented in this encounter Active and Recently Administered Medications Times are shown in EST. Continuous Medication Order 08/26/2021 08/27/2021 08/28/2021 lactated ringers infusion (CANCELED) 100 mL/hr, Intravenous, CONTINUOUS, Starting on Fri08/28/21 at 1430, Until Fri08/28/21 at 1601, Endoscopy (Day of Procedure) 1417 (New Bag - Prov ider: Lani Hewitt RN) PRN Medication Order 08/26/2021 08/27/2021 08/28/2021 benzocaine (Hurricane One) 20% spray (restricted to oanh-procedural use) (CANCELED) ONCE PRN, Starting on Fri08/28/21 at 1435, Until Fri08/28/21 at 1829, Intra-Operative (Intra-Procedure) 1435 (Given - Provid er: Patricia Carmona RN) fentaNYL (pf) (50 mcg/mL) multi-dose injection (CANCELED) ONCE PRN, Starting on Fri08/28/21 at 1435, Until Fri08/28/21 at 1829, Intra-Operative (Intra-Procedure), Routine 1435 (Given - Provid er: Patricia Carmona RN)1437 (Given - Provider: Patricia Carmona RN)1438 (Given - Provider: Patricia Carmona RN)1451 (Given - Provider: Patricia Carmona RN)1500 (Given - Provider: Patricia Carmona RN)1505 (Given - Provider: Patricia Carmona RN) midazolam (pf) (Versed) (1 mg/mL) multi-dose injection (CANCELED) ONCE PRN, Starting on Fri08/28/21 at 1435, Until Fri08/28/21 at 1829, Intra-Operative (Intra-Procedure), Routine 1435 (Given - Provid er: Patricia Carmona RN)1437 (Given - Provider: Patricia Carmona RN)1438 (Given - Provider: Patricia Carmona RN)1451 (Given - Provider: Patricia Carmona RN)1500 (Given - Provider: Patricia Carmona RN)1505 (Given - Provider: Patricia Carmona RN) ondansetron (pf) (Zofran) (2 mg/mL) injection (CANCELED) ONCE PRN, Starting on Fri08/28/21 at 1435, Until Fri08/28/21 at 1829, Intra-Operative (Intra-Procedure), Routine 1435 (Given - Provid er: Patricia Carmona RN) documented in this encounter Care Teams Dish Carrier Relationship Specialty Start Date End Date Candace Bridges APRN [address] [place] [address] PCP - General Family Medicine 08/17/20 documented as of this encounter
--- OUTSIDE RECORDS SUMMARY | 2024-11-15 13:35 | XMS_ITS | Encounter Summary ---
Author Organization [facility] [place] [address] Care Team Providers Care Timber Selector Name Role Phone Tammy Vidales MD Primary Care Provider [phone] Reason for Visit * Reason Onset Date Comments Medication Refill 08/05/2017 Encounter Details Date Type Department Care Team (Late st Contact Info) Description 08/05/2017 [place] [address] Az Hewitt MD [facility] [place] [address] Gastroesophageal reflux disease, esophagitis presence not specified Social History Tobacco Use Types Packs/Day Years [...] documented as of this encounter Visit Diagnoses Diagnosis Gastroesophageal reflux disease, esophagitis presence not specified documented in this encounter Care Teams Timber Selector Relationship Specialty Start Date End Date Tammy Vidales MD [address] [place] [address] PCP - General Family Medicine 07/02/17 08/24/19 documented as of this encounter
--- OUTSIDE RECORDS SUMMARY | 2024-11-15 13:35 | XMS_ITS | Encounter Summary ---
Author Organization [facility] Address [address] [place] [address] Care Team Providers Care Igniter Assembler Name Role Phone Unavailable Primary Care Provider Unavailabl e Encounter Details Date Type Department Care Team (Late st Contact Info) Description 09/17/2002 Results Only [facility] - [facility] conversion [address] [place] [address] Jerry Roberts MD [address] [place] [id number] Social History Tobacco Use Types Packs/Day Years [...] Procedure Name Priority Date/Time Associated Diagnosis Comments SURGICAL PATHOLOGY Routine 09/17/2002 0:00 EST documented in this encounter Results * SURGICAL PATHOLOGY (09/17/2002 0:00 EST) Pathology Report: SURGICAL PATHOLOGY REPORT Reports generated via electronic interface contain original data; however they are lacking the format of the original report. Caution should be taken when reading/interpreti ng unformatted reports. Name: ? PAULA VASQUEZ ? Accession #: ? [id number] ? : ? 1970 (Age: 32) ??M ? Collect Date: ? 09/17/2002 ? Location: ? [facility] ? Receive Date: ? 09/20/2002 ? Provider: JERRY ROBERTS MD Copy to: TITO MORENO MD ? Final Pathologic Diagnosis: A. ?Vas deferens, left, vasectomy: 1. ?Portion of vas deferens with no pathologic features. 2. ?Full cross sections identified. B. ?Vas deferens, right, vasectomy: 1. ?Portion of vas deferens with no pathologic features. 2. ?Full cross sections identified. ? Document reviewed and electronically signed by: TAMRA MENDENHALL MD Report ??Date: 09/22/2002 15:32 By the signature above, the attending physician certifies that he/she has personally conducted a gross and/or microscopic examination of the described specimens and rendered or confirmed the above diagnosis. Specimen(s) Received: A. ?L vas deferens B. ?R vas deferens Clinical History: ? Sterilization vasectomy; clinical diagnosis code: V25.2 Gross Description: ? Received in formalin labeled Elliot and L vas deferens is a 1.0 cm in length by 0.3 cm in diameter white tubular piece of tissue. ??Serial sectioning reveals a pinpoint lumen. ??Two dental detail representative sections are submitted as (A). Received in formalin labeled Elliot and R vas deferens is a 1.2 cm in length by 0.3 cm in diameter white tubular piece of tissue. ??Serial sectioning reveals a pinpoint lumen. ??Two dental detail representative sections are submitted as (B). (Dr. Greenfield)/toñito End of Report YVETTE RUSSELL 09/17/2002 09/20/2002 15: 10 EST us Jerry Roberts MD PATHOLOGY ORDERABLES Final Result Performing Organization Address City/State/[facility] Co de Phone Number YVETTE RUSSELL [address] [place] [address] documented in this encounter Visit Diagnoses Not on filedocumented in this encounter
--- OUTSIDE RECORDS SUMMARY | 2024-11-15 13:35 | XMS_ITS | Encounter Summary ---
Author Organization [facility] [place] [address] Care Team Providers Care Mold Filler Plastic Dolls Name Role Phone Unavailable Primary Care Provider Unavailabl e Encounter Details Date Type Department Care Team (Late st Contact Info) Description 11/13/2016 Telephone [place] [id number] Stu Peterson, RN Social History Tobacco Use Types Packs/Day [...] encounter Miscellaneous Notes * Telephone Encounter - Stu Peterson, RN - 11/13/2016 9:05 AM EST Phoned, spoke with patient in f/u to his 11/12 inquiry regarding PPI (PPI use recommended in Dr. Hewitt's 10/29/16 EGD summary report). Informed patient that his RX insurer will cover omeprazole orlansoprazole. Discussed use of PPI as prophylactic, possibly but not necessarily curative. Patient asks for Dr. Hewitt's recommendation re: dose/frequency/duration of use, and his recommendation as to when to schedule f/u to assess actual efficacy of this medication (beyond self-assessment of whether symptomsreoccur). Patient would prefer that this be guided by Dr. Hewitt's expertise rather than his PCP who has only general knowledge of GI issues and management. Please advise as to prescription (patient will then have his PCP write it) and suggestions for follow-up. documented in this encounter Plan of Treatment Not on file documented as of this encounter Visit Diagnoses Not on filedocumented in this encounter
--- OUTSIDE RECORDS SUMMARY | 2024-11-15 13:35 | XMS_ITS | Encounter Summary ---
Author Organization [facility] [place] [address] Care Team Providers Care Test Technician Name Role Phone Candace Bridges APRN Primary Care Provider [phone] Reason for Visit * Reason Comments Skin Lesion Encounter Details Date Type Department Care Team (Late st Contact Info) Description 03/15/2022 2:00 PM EDT Office Visit Dermatology at [facility] [address] [place] [address] Shelli Flores MD SK (seborrheic keratosis) Social History Tobacco Use Types Packs/Day Years [...] PM EDT documented as of this encounter Progress Notes * Shelli Flores MD - 03/15/2022 2:00 PM EDT Images from the original note were not included. DEPARTMENT OF DERMATOLOGY Medical Dermatology Clinic Provider: [facility] PATIENT [facility] Patient's preferred name Paula Preferred contact method for results []Phone []myD-H []Letter Detailed phone message OK? Y Are there any other people with whom we may discuss your care? Y -Arlene Cronin (spouse) Past Medical History Date, location, treatment Melanoma N Dysplastic nevi N SCC N BCC N AKs N UV Exposure & Protection N Other relevant past medical history Cold sores Family History Details Melanoma N NMSC N Other relevant family history N Social History Occupation: diesel engineer Hobbies: golf, outside PRE-PROCEDURE SCREENING Details Allergy to lidocaine, epinephrine, Dermabond, chlorhexidine, or adhesives N Bleeding disorder or blood thinners N Pacemaker, defibrillator, deep brain stimulator, cochlear implant N History of Present Illness: Paula Zarate is a 51 y.o. Patient is new and self-referred to theclinic for a full skin exam with the following concerns: - Mole on left christian that he has had ~4-6 months asymptomatic Medications: Reviewed in eD-H Allergies: Reviewed in eD-H Skin Examination: Focused skin examination of the face and chest was normal with the exception of the findings below. Assessment/Plan #. Seborrheic keratosis EXAM: on the left christian , there is a few well-circumscribed, stuck-on, waxy papule - Benign nature discussed. No further intervention indicated. RTC: Fall for FSE []Note routed to litigation secretary [x]Recall placed in scheduling system []Appointment scheduled at checkout Scribe attestation: Claudia Ennis [facility] has performed the documentation for this encounter inthe presence of and acting as a scribe for Shelli Flores MD. I performed the above scribed service and agree with the accuracy of the documentation in this encounter. Reviewed and signed by: Shelli Flores MD Dermatology [facility] Staff area sales manager: Ami Meadows MD Dermatology [facility] * Ami Meadows MD - 03/15/2022 2:00 PM EDT I was the supervising physician working with dermatology resident Dr. Flores in the dermatologyclinic during this patient visit. The level of Resident supervision for this patient visit was indirect supervision with direct supervision immediately available. (definition: [facility]ME Policy Statement on Graduate Medical Education, Supervision of Graduate Medical Trainees) I was immediately available to Dr. Flores for questions and discussion regarding this visit. I have reviewed the encounter note details and level of service. AMI MEADOWS MD Staff Physician documented in this encounter Plan of Treatment Not on file documented as of this encounter Visit Diagnoses Diagnosis SK (seborrheic keratosis) Other seborrheic keratosis documented in this encounter Care Teams Test Technician Relationship Specialty Start Date End Date Candace Bridges APRN [address] [place] [address] PCP - General Family Medicine 08/17/20 documented as of this encounter
--- OUTSIDE RECORDS SUMMARY | 2024-11-15 13:35 | XMS_ITS | Encounter Summary ---
Author Organization [facility] Address [address] [place] [address] Care Team Providers Care Open Hearth Furnace Operator Name Role Phone Az Rose MD Primary Care Provider [phone] Encounter Details Date Type Department Care Team (Late st Contact Info) Description 08/21/2021 Lab Requisition [facility] Pathology & Laboratory Medicine - [address] [id number] Outr Resulting Lab, Provider Social History Tobacco [...] Associated Diagnosis Comments PSA TOTAL, DIAGNOSTIC Routine 08/20/2021 10:28 EST documented in this encounter Results * PSA TOTAL, DIAGNOSTIC (08/20/2021 10:28 EST) PSA 1.4 0.0 - 3.5 ng/mL 08/21/2021 17:38 EST [facility] Blood VENOUS BLOOD / Unknown 08/20/2021 10:28 EST 08/21/2021 16:33 EST Narrative [facility] - 08/21/2021 17:38 EST NOTE: Serum PSA concentration should not be interpreted as absolute evidence for the presence or absence of malignant disease. Assayed on Siemens ADVIA Centaur XPT using chemiluminescent technology.??Values obtained by using different assay methods cannot be used interchangeably. us Provider Outr Resulting Lab CHEMISTRY & BLOOD GA S ORDERABLES Final Result [facility] [address] [place] [address] documented in this encounter Visit Diagnoses Not on filedocumented in this encounter Care Teams Open Hearth Furnace Operator Relationship Specialty Start Date End Date Az Rose MD [address] [place] [address] PCP - General 08/12/15 documented as of this encounter
--- OUTSIDE RECORDS SUMMARY | 2024-11-15 13:35 | XMS_ITS | Encounter Summary ---
Author Organization [facility] [place] [place] [address] Care Team Providers Care Engineer Design And Construction Name Role Phone Candace Bridges APRN Primary Care Provider [phone] Reason for Visit * Auth/Cert Specialty Diagnoses / Procedures Referred By Daniela t Referred To Contact Diagnoses Encounter for screening colonoscopy EGD with possible dilation Screening colonoscopy Procedures PRO UPPER GI ENDOSCOPY, DIAGNOSTIC PRO COLONOSCOPY, DIAGNOSTIC EGD, UPPER GI ENDOSCOPY COLONOSCOPY, DIAGNOSTIC Referral ID Status Reason Start Date Expiration Date Visits Re quested Visits Authorized [id number] 1 1 Encounter Details Date Type Department Care Team (Latest Contact Info) Description 08/28/2021 1:41 PM EST - 08/28/2021 4:29 PM EST Hospital En[place] [address] Az Hewitt MD [facility] [place] [address] Discharge Disposition: Home Social History Tobacco Use [...] the day after the test, use an frwa-nrt-aruleth spray or lozenges to numbyour throat. Warm [...] occurs, please contact your doctor. Please call [phone] before 8pm Mon-Fri with problems, questions, or concerns. If you call after 8pm or on weekends, call the Hospital at [phone] and ask for the [employer] Electrical Designer supervisor production and the barrel dedenting machine operator will contact that person for you. When should you call for help? Call [phone] anytime you think you may need emergency [...] more? You can view health information on [employer] your personal patient account. Log in or sign up today. Content Version: 12.2 ?? [id number] [employer]. Care instructions adapted under license by [facility]. If you have questions about a medical condition or this instruction, always ask your healthcare professional. [employer] disclaims any warranty or liability for your [...] Hewitt MD - 08/28/2021 2:39 PM EST [facility] Operative Note Patient Name: Paula Zarate : [id number] MR#: [id number] Case Date: 08/28/2021 Surgeon: Surgeon(s) and Role: [...] Routine 08/28/2021 3:17 PM EST Colonoscopy, Biopsy ([id number]) 08/28/2021 2:31 PM EST EGD with possible dilation Screening colonoscopy Upper GI Endoscopy, Diagnostic ([id number]) 08/28/2021 2:31 PM EST EGD with possible dilation Screening colonoscopy UPPER GI ENDOSCOPY Routine 08/28/2021 2: 20 PM EST COLONOSCOPY Routine 08/28/2021 2:20 PM EST documented in this encounter Results * Specimen to Pathology (08/28/2021 3:21 PM EST) AP Specimen 08/28/2021 3:21 PM EST 08/28/2021 3:21 PM EST Narrative [facility] - 08/28/2021 3:21 PM EST Specimen requisition ordered. ??Separate Pathology report to follow Az Ying MD PATHOLOGY/CYTOLO GY ORDERABLES Performing Organization Address City/State/[facility] Co de Phone Number [facility] [place] [address] * Surgical Pathology Report (08/28/2021 3:17 PM EST) Final Diagnosis [id number] ? Location: 4T; EA08; A The signing pathologist has (i) examined the relevant preparation(s) for the specimen(s) and (ii) rendered or confirmed the diagnosis(es). . ?Surgical Pathology DIAGNOSIS A - Ascending colon polyp, resection: - ??Colonic mucosa within normal limits. - ??Multiple levels examined. Electronically signed by: ?Wes BADILLO PhD, Kimberly Verified: ??09/06/2021 14:19 ??Pathologist Performed at: ??-[facility] Dept. of Pathology, [place], [place] SPECIMEN(S) SUBMITTED A - 3mm Ascending colon polyp, resection (1) CLINICAL INFORMATION Screening colonoscopy SPECIMEN PROCESSING A - Labeled/Fixativ e: 3 mm ascending colon polyp, formalin. Quantity/Size: Two, 0.2 and 0.3 cm. Tissue Description: Soft, orellana-pink tissues. Sections/Proces sing: Submitted en toto ??in 1 cassette labeled B1. ??pps 09/06/2021 2:19 PM EST [facility] GI Biopsy 08/28/2021 3:17 PM EST 08/28/2021 3:17 PM EST Az Ying MD PATHOLOGY/CYTOLO GY ORDERABLES Performing Organization Address [facility] Co de Phone Number [facility] [place] [address] * UPPER GI ENDOSCOPY (08/28/2021 2:20 PM EST) Pathologist [facility] UPPER GI ENDOSCOPY [facility] Endoscopy Procedure Date: 08/28/2021 2:20 PM ? Patient Name: Paula Zarate ? N: [id number] ? Date of : 1970 ? Age: 51 ? Order #: [id number] ? Instrument Name: [id number] ? Procedure: ? Upper GI endoscopy Indications: ? Follow-up of gastro-esophageal reflux ? disease Providers: ? Az Hewitt MD, Patricia Ram ? Kristine, MONICA, Niecy Dunne Referring : ?Candace Nielsen: ? Midazolam 3 mg IV, Fentanyl 125 [...] PROVATION 08/28/2021 2:20 PM EST Candace Bridges CLINICAL AIDE GENERAL SURGICAL ORD ERABLES PROVATION * COLONOSCOPY (08/28/2021 2:20 PM EST) COLONOSCOPY [facility] Endoscopy Procedure Date: 08/28/2021 2:20 PM ? Patient Name: Paula Zarate ? Date of : 1970 ? Age: 51 ? Order #: [id number] ? Instrument Name: [id number] ? Procedure: ? Colonoscopy Indications: ? Screening [...] MAR Action Action Date Dose Rate Site lactated ringers infusion 100 mL/hr, Intravenous, CONTINUOUS, Starting on Fri08/28/21 at 1430, Until Fri08/28/21 at 1601, Endoscopy (Day of Procedure) New Bag 08/28/2021 2:17 PM EST 100 mL/hr 100 mL/hr documented in this encounter Active and Recently [...] RN) documented in this encounter Care Teams Engineer Design And Construction Relationship Specialty Start Date End Date Candace Bridegs APRN [address] [place] [address] PCP - General Family Medicine 08/17/20 documented as of this encounter
--- OUTSIDE RECORDS SUMMARY | 2024-11-15 13:35 | XMS_ITS | Encounter Summary ---
Author Organization [facility] [place] [address] Care Team Providers Care Sulfuric Acid Plant Supervisor Name Role Phone Candace Bridges APRN Primary Care Provider [phone] Reason for Visit * Reason Comments Medication Refill Encounter Details Date Type Department Care Team (Late st Contact Info) Description 01/15/2021 Refill [place] [address] Az Hewitt MD [facility] [place] [address] Esophageal dysphagia Social History Tobacco Use Types Packs/Day Years [...] as of this encounter Visit Diagnoses Diagnosis Esophageal dysphagia Dysphagia, pharyngoesophageal phase documented in this encounter Care Teams Sulfuric Acid Plant Supervisor Relationship Specialty Start Date End Date Candace Bridges APRN [address] [place] [address] PCP - General Family Medicine 08/17/20 documented as of this encounter
--- OUTSIDE RECORDS SUMMARY | 2024-11-15 13:35 | XMS_ITS | Encounter Summary ---
Author Organization Formerly [facility] [place] [address] Care Team Providers Care Road Driver Name Role Phone Unavailable Primary Care Provider Unavailabl e Reason for Visit * Auth/Cert Specialty Diagnoses / Procedures Referred By Contac t Referred To Contact Diagnoses EGD with possible dilation for dysphagia (IVCS) Procedures PRO UPPER GI ENDOSCOPY, DIAGNOSTIC EGD, UPPER GI ENDOSCOPY Referral ID Status Reason Start Date Expiration Date Visits Re quested Visits Authorized [id number] 1 1 Encounter Details Date Type Department Care Team (Late st Contact Info) Description 10/29/2016 2:30 PM EST - 10/29/2016 3:00 PM EST Surgery [place] [id number] Cathy Hewitt MD [facility] [place] [address] UPPER GASTROINTESTINAL ENDOSCOPY,WITH BIOPSY SINGLE OR MULTIPLE (WRVU 2.39) Social History Tobacco Use Types Packs/Day Years [...] Sign Reading Time Taken Comments Blood Pressure 122/81 10/29/2016 2:20 PM EST Pulse 53 10/29/2016 2:20 PM EST Temperature - - Respiratory Rate - - Oxygen Saturation 99% 10/29/2016 2:20 PM EST Inhaled Oxygen Concentration - - Weight 78 kg (172 lb) 10/29/2016 2:20 PM EST Height 175.3 cm (5' 9) 10/29/2016 2:20 PM EST Body Mass Index 25.4 10/29/2016 2:20 PM EST documented in this encounter Discharge Instructions * Discharge Instructions* Dayan Gibbs, RN - 10/29/2016 3:50 PM EST UPPER GI ENDOSCOPY WHAT TO EXPECT AFTER THE PROCEDURE After the test you may feel a little more gassy or bloated than usual, this is normal. ACTIVITY Because of the sedation that you received Your judgement and reaction time are affected ?? Go home and rest quietly for the remainder of the day. You may resume your normal activities tomorrow. ?? Change from one position to the next slowly. You may lose your balance unexpectedly Be careful on stairs, as you may be unsteady on your feet. FOR THE NEXT 24 HRS ?? DO NOT DRIVE OR OPERATE ANY MACHINERY ?? DO NOT DRINK ALCOHOLIC BEVERAGES ?? DO NOT SIGN LEGAL DOCUMENTS ?? If you are a smoker: DO NOT SMOKE WHILE YOU ARE ALONE Diet ?? Start by eating small portions of foods that ordinarily will not upset your stomach. Be gentle with what you choose to start with. ?? Drink plenty of fluids ( unless otherwise told not to) Medications You may have a mild sore throat. Ice chips, popsicles, over the counter throat lozenges or spray may help numb your throat. This procedure should not cause a fever. IV SITE-- slight redness or tenderness is normal, you can use warm compresses if you get concerned.If the tenderness +/or redness increases or foul drainage and a red streak occurs, please contact your PCP immediately. WHEN SHOULD YOU CALL FOR HELP? Call 911 anytime you think that you need emergency care. For example, call if: You passed out (lost consciousness). You cough up blood. You vomit blood or what looks like coffee grounds. You pass maroon or very bloody stools. Call your healthcare provider or seek immediate medical attention if: You have trouble swallowing. You have belly pain. Your stools are black or tarlike or have streaks of blood. You are sick to your stomach or cannot keep fluids down. Watch closely for changes in your health, and be sure to contact your doctor IF Your throat still hurts after a day or two You do not get better as expected. Friday-Friday Same Day Endo [phone] 7a-8p Otherwise contact [phone] and ask to speak to the product development engineer ammunition assembly ii laborer Follow-up care is a aragon part of your treatment and safety. Be sure to make and go to all appointments, and call your doctor if you are having problems. Instructions have been reviewed and patient expresses understanding * Patient Instructions* Cathy Hewitt MD - 10/29/2016 3:41 PM EST Please see Recommendations in the Provation procedure report which is documented in the procedural note in [facility]. * Attachments The following attachments cannot be sent through Care Everywhere. * HIATAL HERNIA (SCOTTISH) documented in this encounter H&P Notes * Cathy Hewitt MD - 10/29/2016 3:06 PM EST Gastroenterology and Hepatology Pre-Procedure History and Physical Exam Procedure: Upper endoscopy Indication: Dysphagia to solids There is no problem list on file [...] encounter Miscellaneous Notes * Op Note - Cathy Hewitt MD - 10/29/2016 3:40 PM EST [facility] Operative Note Patient Name: Paula Zarate : [id number] MR#: [id number] Case Date: 10/29/2016 Surgeon: Surgeon(s) and Role: * Cathy Hewitt MD - Primary Preoperative diagnosis: EGD with possible dilation for dysphagia (IVCS) Postoperative diagnosis: Esophageal ring, hiatal hernia, possible short segment Darden's Procedure(s): UPPER GASTROINTESTINAL ENDOSCOPY,WITH BIOPSY SINGLE OR MULTIPLE (WRVU 2.49) ESOPHAGOSCOPY W\DILATION OF ESOPHAGUS (LESS THAN 30 MM DIAMETER) (WRVU 2.77) Attestation: Case Date: 10/29/2016 CATHY HEWITT MD 10/29/2016 Full procedure note is documented under the Procedure section of [facility]. documented in this encounter Plan of Treatment Not on file documented as of this encounter Procedures Procedure Name Priority Date/Time Associated Diagnosis Comments SURGICAL PATHOLOGY REPORT Routine 10/29/2016 3:44 PM EST SPECIMEN TO PATHOLOGY Routine 10/29/2016 3:44 PM EST SPECIMEN TO PATHOLOGY Routine 10/29/2016 3:44 PM EST ESOPHAGOSCOPY W\DILATION OF ESOPHAGUS (LESS THAN 30 MM DIAMETER) (WRVU 2.67) 10/29/2016 3:11 PM EST EGD with possible dilation for dysphagia (IVCS) UPPER GASTROINTESTINAL ENDOSCOPY,WITH BIOPSY SINGLE OR MULTIPLE (WRVU 2.39) 10/29/2016 3:11 PM EST EGD with possible dilation for dysphagia (IVCS) UPPER GI ENDOSCOPY Routine 10/29/2016 3: 09 PM EST documented in this encounter Results * Surgical Pathology Report (10/29/2016 3:44 PM EST) Final Diagnosis [id number] ?Location: 4T; EA07; A The signing pathologist has (i) examined the relevant preparation(s) for the specimen(s) and (ii) rendered or confirmed the diagnosis(es). . ?Surgical Pathology DIAGNOSIS A - Gastroesophageal junction, ?? biopsy: - Squamocolumnar (cardia-type) junctional mucosa with active esophagitis, ??increased intraepithelial lymphocytes and no evidence of intestinal metaplasia. B - Esophagus, ??biopsy: - Active esophagitis with increased intraepithelial lymphocytes, compatible with reflux etiology. Electronically signed by: ??Chad Chew MD Verified: ??10/31/2016 ?Pathologist CLINICAL INFORMATION Specimen Submitted: A - Gastroesophageal junction at ring at 38 cm B - Esophagus at 33 cm Clinical History: GERD, dysphagia, possible Darden ??'s, possible eosinophilic esophagitis Clinical Diagnosis: Same SPECIMEN PROCESSING A - Labeled/Fixative: Gastroesophageal Junction at ring at 38 cm, formalin. Quantity/Size: Multiple, averaging 0.3 cm. Tissue Description: Irregular fragments of soft orellana tissue. Sections/Processing : (T4) B - Labeled/Fixative: Esophagus at 33 cm, formalin. Quantity/Size: Multiple, ranging from 0.2-0.6 cm. Tissue Description: Irregular, flat fragments of friable orellana-white tissue. Sections/Processing : (T2) ??ksb 10/31/2016 4:33 PM EST [facility] GI Biopsy 10/29/2016 3:44 PM EST 10/29/2016 3:44 PM EST GI Biopsy 10/29/2016 3:44 PM EST 10/29/2016 3:44 PM EST Cathy Ying MD PATHOLOGY/CYTOLO GY ORDERABLES [facility] [place] [address] * Specimen to Pathology (surgical or derm) (10/29/2016 3:44 PM EST) AP Specimen 10/29/2016 3:44 PM EST 10/29/2016 3:44 PM EST Narrative [facility] - 10/29/2016 3:44 PM EST Specimen requisition ordered. ??Separate Pathology report to follow Cathy Ying MD PATHOLOGY/CYTOLO GY ORDERABLES Performing Organization Address [facility] [place] [address] * Specimen to Pathology (surgical or derm) (10/29/2016 3:44 PM EST) AP Specimen 10/29/2016 3:44 PM EST 10/29/2016 3:44 PM EST Narrative [facility] - 10/29/2016 3:44 PM EST Specimen requisition ordered. ??Separate Pathology report to follow Cathy Ying MD PATHOLOGY/CYTOLO GY ORDERABLES Performing Organization Address [facility] [place] [address] * UPPER GI ENDOSCOPY (10/29/2016 3:09 PM EST) UPPER GI ENDOSCOPY [facility] ___ Procedure Date: 10/29/2016 3:09 PM ? Patient Name: Paula Zarate ? [facility]: [id number] ? Date of : 1970 ? Age: 46 ? Order #: [id number] ? Instrument Name: [id number] ? ___ Procedure: ? Upper GI endoscopy Indications: ? Dysphagia Providers: ? Cathy Hewitt MD, Aide ? Kateryna, RN, Rin Brizuela RN Referring : ?Aric Castillo Medicines: ? Midazolam 4 mg IV, Fentanyl 175 ? micrograms IV, Benzocaine spray Complications: ? No immediate complications. ___ Procedure: ? Pre-Anesthesia Assessment: ? - Prior [...] found 38 cm from the ? incisors. Biopsies were taken with a cold forceps for ? histology. ? A mild Schatzki ring (acquired) was found at the ? gastroesophageal junction. 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 segment Darden's esophagus. Biopsies were taken. A ? TTS dilator was passed through the scope. Dilation ? with a 60 Fr balloon dilator was performed. The ring ? was sized slightly larger than dilating balloon. ? Multiple biopsies of the ring were taken. Biopsies ? also taken in the mid-esophagus at 33 cm for EoE. ? A small hiatus hernia was found. The proximal extent ? of the gastric folds (end of tubular esophagus) was ? 38 cm from the incisors. The hiatal narrowing was 41 ? cm from the incisors. ? The examined duodenum was normal. ? Impression: ?- Z-line regular, 38 cm from the ? incisors. Biopsied. ? - Mild distal esophageal ring. ? Dilated. Esophagus biopsied at ring ? and at 33 cm. ? - Small hiatus hernia. ? - Normal examined duodenum. Recommendation: ?- Use a proton pump inhibitor PO ? daily. ? Attending Participation: ? I personally performed the entire procedure. I was ? present during the intraservice time as documented by ? the sedation RN. ? Cathy Hewitt MD 10/29/2016 4:06:40 PM This report has been signed electronically. Number of Addenda: 0 Note Initiated On: 10/29/2016 3:09 PM PROVATION 10/29/2016 3:09 PM EST Aric [facility]ATION documented in this encounter Visit Diagnoses Not on filedocumented in this encounter Administered Medications Inactive Administered Medications - up to 3 most recent administrations Medication Order MAR Action Action Date Dose Rate Site fentaNYL 50 mcg/mL multi-dose injection ONCE PRN, Starting on Fri10/29/16 at 1516, Until Fri10/29/16 at 1822, Intra-Operative (Intra-Procedure), Routine Given 10/29/2016 3:33 PM EST 25 mcg Given 10/29/2016 3:25 PM EST 25 mcg Given 10/29/2016 3:19 PM EST 50 mcg midazolam (PF) (VERSED) 1 mg/mL multi-dose injection ONCE PRN, Starting on Fri10/29/16 at 1516, Until Fri10/29/16 at 1822, Intra-Operative (Intra-Procedure), Routine Given 10/29/2016 3:33 PM EST 0.5 mg Given 10/29/2016 3:25 PM EST 0.5 mg Given 10/29/2016 3:19 PM EST 1 mg documented in this encounter Active and Recently Administered Medications Times are shown in EST. PRN Medication Order 10/27/2016 10/28/2016 10/29/2016 fentaNYL 50 mcg/mL multi-dose injection (CANCELED) ONCE PRN, Starting on Fri10/29/16 at 1516, Until Fri10/29/16 at 1822, Intra-Operative (Intra-Procedure), Routine 1516 (Given - Provid er: Aide Avendaño RN)1519 (Given - Provider: Aide Avendaño RN)1525 (Given - Provider: Aide Avendaño RN)1533 (Given - Provider: Aide Avendaño RN) midazolam (PF) (VERSED) 1 mg/mL multi-dose injection (CANCELED) ONCE PRN, Starting on Fri10/29/16 at 1516, Until Fri10/29/16 at 1822, Intra-Operative (Intra-Procedure), Routine 1516 (Given - Provid er: Aide Avendaño RN)1519 (Given - Provider: Aide Avendaño RN)1525 (Given - Provider: Aide Avendaño RN)1533 (Given - Provider: Aide Avendaño RN) documented in this encounter
--- OUTSIDE RECORDS SUMMARY | 2024-11-15 13:35 | XMS_ITS | Encounter Summary ---
Author Organization [facility] [place] [address] Care Team Providers Care Glass Edger Name Role Phone Aric Castillo Primary Care Provider [phone] Encounter Details Date Type Department Care Team (Late st Contact Info) Description 10/14/2019 Telephone [place] [phone] Arely Peterson RN Social History Tobacco Use [...] Telephone Encounter - Arely Peterson RN - 10/14/2019 12:01 PM EST Patient calls the office leaving a message on the RN voicemail stating that a prescription for Omeprazole was to be sent to [facility] in [place], [place] yesterday, but the pharmacy states they did not receive it. This underwriter mortgage loan called the pharmacy, spoke with Hope who stated they did receive the prescription and the medication is ready for pick up worker. Returned call to patient to make him aware of the above. documented in this encounter Plan of Treatment Not on file documented as of this encounter Visit Diagnoses Not on filedocumented in this encounter Care Teams Glass Edger Relationship Specialty Start Date End Date Aric Castillo PA PCP - General General Internal Medicine 08/25/1908/25 documented as of this encounter
--- OUTSIDE RECORDS SUMMARY | 2024-11-15 13:35 | XMS_ITS | Encounter Summary ---
Author Organization [facility] [place] [address] Care Team Providers Care Log Hooker Name Role Phone Tammy Vidales MD Primary Care Provider [phone] Reason for Visit * Reason Comments Skin Check Encounter Details Date Type Department Care Team (Late st Contact Info) Description 09/05/2017 3:20 PM EST Office Visit Dermatology at [facility] [address] [place] [address] Mimi Fajardo MD Congenital nevus (Primary Dx); Sun-damaged skin; Dandruff; Screening for skin cancer Social History Tobacco Use Types Packs/Day Years [...] as of this encounter Progress Notes * Mimi Fajardo MD - 09/05/2017 3:20 PM EST DERMATOLOGY - NEW PATIENT NOTE Date of service: 09/05/2017 Paula Zarate : 1970, 47 y.o. CC: Pigmented lesion and skin cancer evaluation. HPI: Paula Zarate is a 47 y.o. male. Has a few spots on his body he'd like checked out. Patient denies any new spot that has been growing, changing, bleeding, or symptomatic. 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 omeprazole (PRILOSEC) 20 mg Capsule, Delayed Release(E.C.) Take 1 capsule by mouth daily. Take 30-60 minutes before first meal of the day. 30 capsule 11 No current facility-administered medications for this visit. Allergies: Allergies Allergen Reactions ??? Iodine Anaphylaxis Review of Systems: - General: Feels well. - Skin: No other skin concerns. Examination: - Constitutional: Patient was alert, well-appearing and in no noticeable distress. - Skin: The patient was instructed to disrobe to the level of their comfort. A full body examination was performed, which included the head, neck, scalp, arms, hands, legs, feet, chest, back, abdomen, buttocks. Examination of the genitalia was offered but the patient declined. A female registrar assistant was present and on standby during my examination. 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 Discussed benign nature of lesion and provided reassurance. No treatment necessary at this time. 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 -discussed sign of sun damage, recommended sun protection 3. Mild seborrheic dermatitis: Yellowish scales on the central face and eyebrows. -discussed chronic nature -Recommending OTC selenium sulphide shampoo, leave on 5 mins prior to rinsing. Use until resolution. Repeat if needed. # Skin Cancer Surveillance -- no growths or lesions suspicious for malignancy on the body parts examined as listed above - discussed the importance of frequently monitoring for spots that change, which include the ABCEs of melanoma features: asymmetry, irregular border, dark or changing colour, and evolution (increasing in size/diameter). If the patient noticed any of these features, in addition to bleeding, the patient was instructed to call us for a re-evaluation - discussed the importance of sun protection/avoidance, to use SPF30+ sunscreen with reapplication at least q3hr if in the sun, or wear sun-protective clothing with UPF ratings. - discussed w/ pt that up to 50% of melanoma arise from pre-existing nevi, while the other 50% arise de richard - recommended wearing broad-brimmed hat RTC: 1 year full skin exam, sooner if needed. Reminder placed in the system today. Note initiated by Marleni Washington CMA. I am documenting this encounter acting as the scribe for and in the presence of Mimi Fajardo MD: I performed the above scribed service and agree with the accuracy of the documentation in this encounter. Reviewed and signed by Mimi Fajardo MD Resident in Dermatology [facility] Staff cafeteria monitor: Silvia Joshua MD Section of Dermatology [facility] * Silvia Joshua MD - 09/05/2017 3:20 PM EST I directly supervised Dr. Mimi Fajardo during this office visit. Dr. Fajardo presented the history and physical exam to me. I then saw and examined this patient with Dr. Fajardo. We reviewed the history and pertinent details and I confirmed the physical findings. I agree with the details of the history and physical exam as documented in Dr. Fajardo's note. Silvia Joshua MD Staff Physician documented in this encounter Plan of Treatment Not on file documented as of this encounter Visit Diagnoses Diagnosis Congenital nevus- Primary Benign neoplasm of skin, site unspecified Sun-damaged skin Other chronic dermatitis due to solar radiation Dandruff Other seborrheic dermatitis Screening for skin cancer Screening for malignant neoplasm of the skin documented in this encounter Care Teams Log Hooker Relationship Specialty Start Date End Date Tammy Vidales MD [address] [place] [address] PCP - General Family Medicine 07/02/17 08/24/19 documented as of this encounter
--- OUTSIDE RECORDS SUMMARY | 2024-11-15 13:35 | XMS_ITS | Encounter Summary ---
Author Organization Formerly [facility] [place] [address] Care Team Providers Care Donkey Ride Operator Name Role Phone Candace Bridges APRN Primary Care Provider [phone] Encounter Details Date Type Department Care Team (Late st Contact Info) Description 05/15/2024 [place] [phone] Ivonne Fisher Social History Tobacco Use Types Packs/Day Years [...] on filedocumented in this encounter Care Teams Donkey Ride Operator Relationship Specialty Start Date End Date Candace Bridges APRN [address] [place] [address] PCP - General Family Medicine 08/17/20 documented as of this encounter
--- OUTSIDE RECORDS SUMMARY | 2024-11-15 13:35 | XMS_ITS | Encounter Summary ---
Author Organization [facility] [place] [address] Care Team Providers Care Circulation Tender Name Role Phone Aric Castillo Primary Care Provider [phone] Reason for Visit * Consultation (Routine) - Closed Specialty Diagnoses / Procedures Referred By Contac t Referred To Contact Gastroenterology Diagnoses ACQUIRED Aric Sweet PA [address] [place] [address] [facility] [address] [place] [address] Referral ID Status Reason Start Date Expiration Date V isits Requested Visits Authorized [id number] Closed Consult, Test & Treat [facility] PCP Updated and/or Approved 08/25/2019 08/24/2020 1 1 Encounter Details Date Type Department Care Team (Late st Contact Info) Description 10/13/2019 10:00 AM EST Office [place] [address] Az Hewitt MD [facility] [place] [address] Esophageal dysphagia Social History Tobacco Use Types [...] Sign Reading Time Taken Comments Blood Pressure 109/72 10/13/2019 9:59 AM EST Pulse 55 10/13/2019 9:59 AM EST Temperature - - Respiratory Rate - - Oxygen Saturation - - Inhaled Oxygen Concentration - - Weight 79.4 kg (175 lb) 10/13/2019 9:59 AM EST Height 175.3 cm (5' 9) 10/13/2019 9:59 AM EST Body Mass Index 25.84 10/13/2019 9:59 AM EST documented in this encounter Progress Notes * Az Hewitt MD - 10/13/2019 10:00 AM EST HISTORY: Paula Zarate presents for consultation and further evaluation of dysphagia In 2017 ws seen for similar symptoms Had EGD with lymphocytic esophagitis and a mid-esophageal ring which we dilated Switched from PPI to ranitidine for a year The Zantac scare caused him to stop the meds. More recently he developed recurrent symptoms and he is here to review next course of action. He is 49 and will be eligible for routine colon cancer screening in this year. PMHx: There is no problem list on file for this patient. PHYSICAL EXAM: Most Recent Vitals: 10/13/19 0959 BP: 109/72 Pulse: 55 NAD IMPRESSION: Recurrent symptoms of dysphagia with hx of lymphocytic esophagitis. He should be on daily acid suppression. We discussed the utility of a repeat upper endoscopy and this will get scheduled. He also will need a screening colonoscopy in the near future as he turns 50. These can be done together if he wants, and he will check to see if his screening colo could be done 6 months in advanceof his 50 th birthday. Otherwise, if he can tolerate current symptoms, he could wait for both. He could also do the EGD now and colo later. He was to discuss with payer and let us know. 20 of 25 minutes spent in direct [id number] counseling and the rest in taking history. PLAN: Restart omeprazole 40 mg po qd EGD with possible dilation Screening colonoscopy (will check on doing it together and early or wait to age 50 in a number of months) Az Hewitt MD Section of Gastroenterology and Hepatology documented in this encounter Plan of Treatment Not on file documented as of this encounter Visit Diagnoses Diagnosis Esophageal dysphagia Dysphagia, pharyngoesophageal phase documented in this encounter Care Teams Circulation Tender Relationship Specialty Start Date End Date Aric Castillo PA PCP - General General Internal Medicine 08/25/1908/25 documented as of this encounter
--- OUTSIDE RECORDS SUMMARY | 2024-11-15 13:35 | XMS_ITS | Encounter Summary ---
Author Organization [facility] [place] [place] [address] Care Team Providers Care Cognos Architect Name Role Phone Candace Bridges APRN Primary Care Provider [phone] Reason for Visit * Reason Comments Medication Refill Encounter Details Date Type Department Care Team (Late st Contact Info) Description 03/17/2021 Ref[place] [address] Az Hewitt MD [facility] [place] [address] Esophageal dysphagia Social History Tobacco Use Types [...] phase documented in this encounter Care Teams Cognos Architect Relationship Specialty Start Date End Date Candace Bridges APRN [address] [place] [address] PCP - General Family Medicine 08/17/20 documented as of this encounter
--- OUTSIDE RECORDS SUMMARY | 2024-11-15 13:35 | XMS_ITS | Clinical Summary ---
Author Organization [facility] [place] [address] Care Team Providers Care Horse Rider Name Role Phone Candace Bridges APRN Primary Care Provider [phone] Allergies Active Allergy Reactions Criticality Noted Date Comments Iodine Anaphylaxis High 10/23/2016 Medications Medication Sig Dispensed Refills Start Date End Date Status omeprazole (PriLOSEC) 40 mg Capsule, Delayed Release(E.C.)Indicat ions:Esophageal dysphagia TAKE 1 CAPSULE DAILY 30 capsule 1 01/16/2021 Active Active Problems No known active problems Immunizations Name Administration Dates Next Due Covid-19 Monovalent (Moderna Spikevax) 12yrs+ ([id number]) 09/19/2021,01/27/2021,01/01/2021 Social History Tobacco Use Types Packs/Day Years Used Date Smoking Tobacco: Never Smokeless Tobacco: Never Alcohol Use Standard Drinks/Week Comments Yes 0 (1 standard drink = 0.6 oz pur e alcohol) twice monthly Sex and Gender Information Value Date Recorded Sex Assigned at Male 03/08/2022 9:15 PM EDT Gender Identity Not on file Sexual Orientation Straight 03/08/2022 9: 15 PM EDT Last Filed Vital Signs Vital Sign Reading [...] Mass Index 25.84 08/28/2021 2:03 PM EST Plan of Treatment Health Maintenance Due Date Last Done Comments CT Colonography 1970 FIT DNA 1970 FIT 1970 Sigmoidoscopy 1970 HIV screen 1988 Hepatitis C Screening 1988 Lipid Screening 1988 Hepatitis B vaccine (0-59 yrs) (1) 1989 Tetanus/Diphtheria/Pertussis Vaccines (1 - Tdap) 1989 Pneumoccocal Vaccine: 50+ (1 of 1 - PCV) 2020 Zoster vaccine (1 of 2) 2020 Covid-19 Vaccine (4 - season) 2024 09/19/2021, 01/27/2021, 01/01/2021 Influenza (Flu) vaccine (1 o f 1 - Influenza standard series) 06/06/2024 Colonoscopy 08/28/2026 08/28/2021, 08/28/2021 Colorectal Cancer Screening 08/28/2026 Sigmoidoscopy (10 year) with FIT yearly 08/28/2031 08/28/2021, 08/28/2021 Procedures Procedure Name Priority Date/Time Associated Diagnosis Comments COLONOSCOPY Routine 08/28/2021 2:20 PM EST from Last 3 Months or Most Recently Relevant to Health Maintenance Results * COLONOSCOPY (08/28/2021 2:20 PM EST) COLONOSCOPY [facility] Endoscopy Procedure Date: 08/28/2021 2:20 PM ? Patient Name: Paula Elliot ? Date of : 1970 ? Age: 51 ? Order #: [id number] ? Instrument Name: [id number] ? Procedure: ? Colonoscopy Indications: ? Screening for colorectal malignant ? neoplasm Providers: ? Az Hewitt MD, Patricia Ram ? MONICA Carmona, Niecy Cain MD: ?Candace Young Medicines: ? [...] PROVATION 08/28/2021 2:20 PM EST Candace Bridges STUDENT ADMISSIONS CLERK GENERAL SURGICAL ORD ERABLES PROVATION from Last 3 Months or Most Recently Relevant to Health Maintenance Care Teams Horse Rider Relationship Specialty Start Date End Date Candace Bridges APRN [address] [place], [place] [id number] PCP - General Family Medicine 08/17/20
--- OUTSIDE RECORDS SUMMARY | 2024-11-15 13:35 | XMS_ITS | Encounter Summary ---
Author Organization [facility] Address [address] [place] [address] Care Team Providers Care Pricing Associate Name Role Phone Az Rose MD Primary Care Provider [phone] Encounter Details Date Type Department Care Team (Late st Contact Info) Description 08/30/2020 Lab Requisition [facility] Pathology & Laboratory Medicine - [facility] [address] [place] [address] Outr Resulting Lab, Provider Social History Tobacco [...] on filedocumented in this encounter Care Teams Pricing Associate Relationship Specialty Start Date End Date Az Rose MD [address] [place], [place] [id number] PCP - General 08/12/15 documented as of this encounter
--- OUTSIDE RECORDS SUMMARY | 2024-11-15 13:35 | XMS_ITS | Encounter Summary ---
Author Organization [facility] [place] [address] Care Team Providers Care Nissan Sales Consultant Name Role Phone Candace Bridges APRN Primary Care Provider [phone] Encounter Details Date Type Department Care Team (Latest Contact Info) Description 05/21/2024 Travel Social History Tobacco Use Types Packs/Day Years [...] on filedocumented in this encounter Care Teams Nissan Sales Consultant Relationship Specialty Start Date End Date Candace Bridges APRN [address] [place] [address] PCP - General Family Medicine 08/17/20 documented as of this encounter
--- OUTSIDE RECORDS SUMMARY | 2024-11-15 13:35 | XMS_ITS | Encounter Summary ---
[facility] [place] [address] Care Team Providers Care Cause Analyst Name Role Phone Candace Bridges APRN Primary Care Provider [phone] Encounter Details Date Type Department Care Team (Late st Contact Info) Description 06/15/2021 Telephone [place] [phone] Manoj Rojas Social History Tobacco Use Types Packs/Day Years [...] encounter Miscellaneous Notes * Telephone Encounter - Manoj Rojas - 06/15/2021 4:12 PM EDT Paula Zarate [id number] Diagnosis/Indication: EGD with possible dilation Screening colonoscopy 1. Have you ever had a/an Upper Endoscopy & Colonoscopy before? Yes: Date EGD 10/29/2016 [place] Never If yes, did you have any problems with the procedure? No What type of sedation was used: IV Conscious Sedation 2. Do you take any blood thinners or have you been diagnosed with a bleeding disorder that increases your risk of bleeding with procedures? No 3. Do you have a Pacemaker or Defibrillator device? No 4. Are you a diabetic? No 5. Do you have any Allergies to Eggs, Latex or Medications? Yes: See chart 6. Do you take any Oral Iron Supplements (Including multi-vitamins)? No 7. Do you have a history of three or more abdominal surgeries? No 8. Have you had a problem with sedation or anesthesia? No 9. Do you use a c-pap machine or oxygen tank? C-Pap 10. Do you take prescription narcotic pain medications, including suboxone or methodone? No 11. Do you have a preference regarding the gender of your provider? No Preference 12. Is there any other information you would like to us to note for the provider and nursing team who will perform your case? No 13. Say to patient: You must have a responsible libertarian who will drive you to your procedure, stay oncampus for the entire duration of your procedure, and drive you home from your procedure? *Please Verify the height and weight, and adjust if height and/or weight have changed* Estimated body mass index is 25.84 kg/m?? as calculated from the following: Height as of 10/13/19: 175.3 cm (5' 9). Weight as of 10/13/19: 79.4 kg (175 lb). Age:51 y.o. documented in this encounter Plan of Treatment Not on file documented as of this encounter Visit Diagnoses Not on filedocumented in this encounter Care Teams Cause Analyst Relationship Specialty Start Date End Date Candace Bridges APRN [address] [place] [address] PCP - General Family Medicine 08/17/20 documented as of this encounter
--- OUTSIDE RECORDS SUMMARY | 2024-11-15 13:35 | XMS_ITS | Encounter Summary ---
Author Organization [facility] [place] [address] Care Team Providers Care Transportation Attendant Name Role Phone Tammy Vidales MD Primary Care Provider [phone] Encounter Details Date Type Department Care Team (Late st Contact Info) Description 09/12/2017 Refill [place] [phone] Arely Peterson RN Gastroesophageal reflux disease, esophagitis presence not specified [...] Telephone Encounter - Arely Peterson RN - 09/12/2017 8:59 AM EST Received faxed request from [employer] requesting 90 day supply of Omeprazole 20mg caps. documented in this encounter Plan of Treatment Not on file documented as of this encounter Visit Diagnoses Diagnosis Gastroesophageal reflux disease, esophagitis presence not specified documented in this encounter Care Teams Transportation Attendant Relationship Specialty Start Date End Date Tammy Vidales MD [address] [place] [address] PCP - General Family Medicine 07/02/17 08/24/19 documented as of this encounter
--- OUTSIDE RECORDS SUMMARY | 2024-11-15 13:36 | XMS_ITS | Encounter Summary ---
Author Organization [facility] [place] [address] Care Team Providers Care Refrigeration Tech Name Role Phone Unavailable Primary Care Provider Unavailabl e Reason for Visit * Reason Comments GI Problem * Consultation (Routine) - Specialty Diagnoses / Procedures Referred By Daniela guidry Referred To Contact Gastroenterology Diagnoses Swallowing problem Swallowing problem Aric Castillo PA [address] [place] [address] [facility] [address] [place] [address] Referral ID Status Reason Start Date Expiration Date V isits Requested Visits Authorized [id number] Consult, Test & Treat [facility] PCP Updated and/or Approved 10/03/2016 11/14/2016 6 6 Encounter Details Date Type Department Care Team (Late st Contact Info) Description 10/23/2016 9:00 AM EST Office [place] [phone] Az Hewitt MD [facility] [place] [address] Dysphagia, unspecified type Social History Tobacco Use Types Packs/Day Years Used Date Smoking Tobacco: Never Smokeless Tobacco: Never Sex and Gender Information Value Date Recorded Sex Assigned at Male 03/08/2022 9:15 PM EDT Gender Identity Not on file Sexual Orientation Straight 03/08/2022 9: 15 PM EDT documented as of this encounter Last Filed Vital Signs Vital Sign Reading Time Taken Comments Blood Pressure 123/81 10/23/2016 8:55 AM EST Pulse 56 10/23/2016 8:55 AM EST Temperature - - Respiratory Rate - - Oxygen Saturation - - Inhaled Oxygen Concentration - - Weight 78.1 kg (172 lb 3.2 oz) 10/23/2016 8:55 A M EST Height 175.3 cm (5' 9) 10/23/2016 8:55 AM EST Body Mass Index 25.43 10/23/2016 8:55 AM EST documented in this encounter Progress Notes * Az Hewitt MD - 10/23/2016 9:00 AM EST HISTORY: Paula Zarate presents for consultation and further evaluation of solids dysphagia. For over a year, has had solids dysphagia. Liquids can clear it. No liquids get stuck. No vomiting. Stops eating or drinking when has the stuck sensation. Can get hiccoughs. No heartburn. Rare regurgitation. Weight and appetite stable. Bowels are regular. Family hx of GERD and hx of hiatal hernia, family hx protein C deficiency (he has been tested and is not at risk) No liver or pancreatic disease Allergies: iodine Social: drafter civil (cad), , 2 girls, nonsmoker, occasional alcohol PMHx: healthy There is no problem list on file for this patient. PHYSICAL EXAM: Vitals: 10/23/16 0855 BP: 123/81 Pulse: 56 NAD No adenopathy or thyromegaly Chest clear Heart normal Abdomen soft, non-tender, no organomegaly, nl BS IMPRESSION: Dysphagia, with ring-like symptoms, seems to fit the profile. There is intermittency, solids only, non-progressive pattern, no weight loss, no liquids issues. Bolus eventually passes and he feels it stick and pass. Has hx of GERD but no pyrosis.There could be Darden's and esophageal neoplasia, and there is the possibility that this is related to a motor disorder, possibly even early achalasia. We reviewed that he could undergo Upper Endoscopy as first investigation. Contingencies include barium swallow and esophageal manometry, depending on the findings from the upper endoscopy. If there is a ring, we discussed the role and the risks of esophageal dilation. 30 of 40 minutes spent in direct [id number] counseling and the rest in taking history and performing physical exam. PLAN: Upper endoscopy with possible esophageal dilation Az Hewitt MD Section of Gastroenterology and Hepatology documented in this encounter Plan of Treatment Not on file documented as of this encounter Visit Diagnoses Diagnosis Dysphagia, unspecified type documented in this encounter
--- OUTSIDE RECORDS SUMMARY | 2024-11-15 13:36 | XMS_ITS | Encounter Summary ---
Author Organization [facility] [place] [address] Care Team Providers Care Remote Sensing Advisor Name Role Phone Unavailable Primary Care Provider Unavailabl e Reason for Visit * Auth/Cert Specialty Diagnoses / Procedures Referred By Contac t Referred To Contact Diagnoses EGD with possible dilation for dysphagia (IVCS) Procedures PRO UPPER GI ENDOSCOPY, DIAGNOSTIC EGD, UPPER GI ENDOSCOPY Referral ID Status Reason Start Date Expiration Date Visits Re quested Visits Authorized [id number] 1 1 Encounter Details Date Type Department Care Team (Latest Contact Info) Description 10/29/2016 1:38 PM EST - 10/29/2016 4:21 PM EST Hospital Encounter [place] [phone] Cathy Hewitt MD [facility] [place] [address] Discharge Disposition: Home Social History Tobacco Use [...] Reading Time Taken Comments Blood Pressure 117/86 10/29/2016 4:00 PM EST Pulse 60 10/29/2016 3:48 PM EST Temperature - - Respiratory Rate 16 10/29/2016 3:48 PM EST Oxygen Saturation 94% 10/29/2016 4:00 PM EST Inhaled Oxygen Concentration - [...] better as expected. Friday-Friday Same Day Endo [phone] [id number] Otherwise contact [phone] and ask to speak to the training program developer termite control servicer Follow-up care is a aragon part of [...] sent through Care Everywhere. * HIATAL HERNIA (EGYPTIAN) documented in this encounter H&P Notes * [...] Hewitt MD - 10/29/2016 3:40 PM EST [facility] [place] Patient Name: Paula Zarate : [id number] MR#: [id number] Case Date: 10/29/2016 Surgeon: Surgeon(s) and Role: [...] is documented under the Procedure section of [facility]. documented in this encounter Plan of Treatment [...] Report (10/29/2016 3:44 PM EST) Final Diagnosis [id number] ?Location: 4; 07; A The signing pathologist has (i) examined [...] : (T2) ??ksb 10/31/2016 4:[address] [facility] GI Biopsy 10/29/2016 3:44 PM EST 10/29/2016 3:44 PM EST GI Biopsy 10/29/2016 3:44 PM EST 10/29/2016 3:44 PM EST Cathy Ying MD PATHOLOGY/CYTOLO GY ORDERABLES [facility] [place] [address] * Specimen to Pathology (surgical or derm) (10/29/2016 3:44 PM EST) AP Specimen 10/29/2016 3:44 PM EST 10/29/2016 3:[address] [facility] - 10/29/2016 3:44 PM EST Specimen requisition ordered. ??Separate Pathology report to follow Cathy Ying MD PATHOLOGY/CYTOLO GY ORDERABLES Performing Organization Address [facility] [place] [address] * Specimen to Pathology (surgical or derm) (10/29/2016 3:44 PM EST) AP Specimen 10/29/2016 3:44 PM EST 10/29/2016 3:[address] [facility] - 10/29/2016 3:44 PM EST Specimen requisition ordered. ??Separate Pathology report to follow Cathy Ynig MD PATHOLOGY/CYTOLO GY ORDERABLES Performing Organization Address [facility] [place] [address] * UPPER GI ENDOSCOPY (10/29/2016 3:09 PM EST) UPPER GI ENDOSCOPY [facility] ___ Procedure Date: 10/29/2016 3:09 PM ? Patient Name: Paula Zarate ? N: [id number] ? Date of : 1970 ? Age: 46 ? Order #: [id number] ? Instrument Name: [id number] ? ___ Procedure: ? Upper GI endoscopy Indications: ? Dysphagia Providers: ? Cathy Hewitt MD, Aide ? Kateryna RN, Rin Brizuela RN Referring : ?Aric [...] Diagnoses Not on filedocumented in this encounter Active and Recently Administered Medications Times are shown in EST. PRN Medication Order 10/27/2016 10/28/2016 10/29/2016 fentaNYL 50 mcg/mL multi-dose injection (CANCELED) ONCE PRN, Starting on Fri10/29/16 at 1516, Until Fri10/29/16 at 1822, Intra-Operative (Intra-Procedure), Routine 1516 (Given - Provid er: Aide Avendaño RN)1519 (Given - Provider: Aide Avendaño RN)1525 (Given - Provider: Aide Avendaño, RN)1533 (Given - Provider: Aide Avendaño, RN) midazolam (PF) (VERSED) 1 mg/mL multi-dose injection (CANCELED) ONCE PRN, Starting on Fri10/29/16 at 1516, Until Fri10/29/16 at 1822, Intra-Operative (Intra-Procedure), Routine 1516 (Given - Provid er: Aide Avendaño RN)1519 (Given - Provider: Aide Avendaño RN)1525 (Given - Provider: Aide Avendaño, RN)1533 (Given - Provider: Aide Avendaño, RN) documented in this encounter
[2024-11-15 14:51] LABS: Anion Gap 5.5 mmol/L (3-11); BUN 17 mg/dL (7-18); CO2 30.5 mmol/L (21.0-32.0); CREATININE 1.2 mg/dL (0.70-1.30); Calcium 8.8 mg/dL (8.5-10.1); Chloride 106 mmol/L (98-107); Estimated GFR 71.86 (mL/min/1.73m2); Glucose 81 mg/dL (74-106); Sodium 142 mmol/L (136-145)
== END 2024-11-15 13:34 | disposition home or self-care (01) ==
LOC: NCHCN 13:33
PROVIDERS: PCP Nurse Practitioner Family; Visit Provider Nurse Practitioner Family
DX: N28.9 Disorder of kidney and ureter, unspecified (principal)
CPT/HCPCS: 80048